=== PATIENT | female | born 1930 | race Two or more races ===

== ENCOUNTER 2016-10-08 09:10 | Inpatient (IN) | payer MEDICARE, MEDICAID ==
[2016-10-08] VITALS (8 sets, daily range): BP systolic 131–159; BP diastolic 57–91
[~2016-10-08] VITALS: Ht 144.8 cm; Wt 59.0 kg
[2016-10-08] MEDS ORDERED: Solu-MEDROL 125mg Inj IVP ONE (09:30)
[2016-10-08] MEDS: Albuterol ud Inhalation HHN SCH ×3 (09:36→10:07)
--- NOTE | 2016-10-08 09:48 | Emergency Room Report ---
History of Present Illness General Chief Complaint: Upper Respiratory Illness Source: Patient, EMS Present Illness HPI 85 YOF with 1 week of "asthma problem". Assoc with cough, fever/chills. Denies abd pain, urinary complaints, weakness, headache. Using her home meds without improvement. BIBEMS, given tx en route. PMD is Dr Tovar Allergies: Coded Allergies: AMOXICILLIN (Verified Allergy, Unknown, 10/08/16) LEVETIRACETAM (Verified Allergy, Unknown, 10/08/16) Patient History Past Medical History: asthma, COPD Past Surgical History: none Pertinent Family History: none Social History: Denies: alcohol use, drug use, smoking Now: No Immunizations: UTD Reviewed Nursing Documentation: PMH: Agreed, PSxH: Agreed Nursing Documentation-PMH Past Medical History: No History, Except For Hx Hypertension: Yes Hx COPD: Yes Review of Systems All Other Systems: negative except mentioned in HPI Physical Exam Vital Signs Date Time Temp Pulse Resp B/P Pulse Ox O2 Delivery O2 Flow Rate FiO2 10/08/16 09:10 98.8 75 22 157/74 98 Room Air 10/08/16 09:39 21 Sp02 EP Interpretation: reviewed, normal General Appearance: normal inspection, well appearing, alert, GCS 15, non-toxic , mild distress Head: normocephalic, atraumatic Eyes: bilateral eye EOMI, bilateral eye PERRL ENT: normal ENT inspection, hearing grossly normal, normal voice Neck: normal inspection, full range of motion, supple, no bony tend Respiratory: normal inspection, no retraction, no accessory muscle use, speaking full sentences, wheezing Cardiovascular #1: regular rate, rhythm, no edema Gastrointestinal: normal inspection, normal bowel sounds, non tender, soft, no guarding, no hernia Genitourinary: no CVA tenderness Musculoskeletal: normal inspection, back normal, normal range of motion, Lucius' s Sign negative Neurologic: normal inspection, alert, oriented x3, responsive, interior decorator paperhanging III-XII nml as tested, motor strength/tone normal, speech normal Psychiatric: normal inspection, judgement/insight normal, mood/affect normal Skin: normal inspection Medical Decision Making Medicare Attestation I Radha Melendez MD hereby attest that the medical record entry for date of service, 06/12/16 accurately reflects signatures/notations that I made in my capacity as MD when I treated/diagnosed the above listed Medicare beneficiary. I attest that this information is true, accurate and complete to the best of my knowledge. I understand that any falsification, omission, or concealment of material fact may subject me to administrative, civil, or criminal liability. This patient warrants hospital admission for extreme of age and has a condition that cannot be treated as outpatient. Diagnostic Impression: Primary Impression: COPD exacerbation Additional Impression: DOC (acute kidney injury) ER Course Mild asthma/COPD exac: CXR does not show PNA. Improved on nebs. Mild DOC on labs. Patient encouraged to do PO intake Endorsed to Dr Tovar for tele admit at 1106am EKG Diagnostic Results Rate: normal Rhythm: NSR ST Segments: no acute changes ASA given to the pt in ED: No Rhythm Strip Diag. Results EP Interpretation: yes Rate: 63 Rhythm: NSR, no PVC's Chest X-Ray Diagnostic Results EP Interpretation: Yes Findings: no consolidation, no effusion, no pneumothorax, no acute cardiopulmonary disease Number of Views: 1 Last Vital Signs Date Time Temp Pulse Resp B/P Pulse Ox O2 Delivery O2 Flow Rate FiO2 10/08/16 09:39 71 18 Room Air 21 10/08/16 09:38 98 10/08/16 09:10 98.8 157/74 Status: improved Disposition: ADMITTED INPATIENT RADHA MELENDEZ M.D. Oct 08, 2016 09:48
--- NOTE | 2016-10-08 10:19 | Diagnostic Imaging Report ---
Clinical history: Shortness of breath Technique: Portable AP chest radiograph was obtained. Comparison: None Findings: There is mild cardiomegaly with probable mild interstitial edema. Trace left effusion may be present. No focal consolidation is identified. Probable mild scattered changes of chronic lung disease are identified. The bony thorax is unremarkable. Impression: Mild cardiomegaly with suspected mild interstitial edema and trace left pleural effusion.
[2016-10-08 10:42] LABS: BASOPHILS % (AUTO) 1.5 % (0.0-2.0); EOSINOPHILS % (AUTO) 14.8 % (0.0-3.0); LYMPHOCYTES % (AUTO) 18.2 % (20.0-45.0); MEAN CORPUSCULAR HEMOGLOBIN 25.9 PG (27.0-31.0); MEAN CORPUSCULAR HGB CONC 30.2 G/DL (32.0-36.0); MEAN CORPUSCULAR VOLUME 86 FL (80-99); MEAN PLATELET VOLUME 6.1 FL (6.5-10.1); NEUTROPHILS % (AUTO) 57.6 % (45.0-75.0); PLATELET COUNT 265 K/UL (150-450); RED CELL DISTRIBUTION WIDTH 15.8 % (11.6-14.8); WHITE BLOOD COUNT 8.4 K/UL (4.8-10.8)
[2016-10-08 11:03] LABS: ALANINE AMINOTRANSFERASE 10 U/L (3-33); ALBUMIN/GLOBULIN RATIO 1.3 (1.0-2.7); ANION GAP 15 (5-15); ASPARTATE AMINO TRANSFERASE 17 U/L (5-40); CALCIUM 9.9 mg/dL (8.6-10.2); CARBON DIOXIDE 26 mEQ/L (20-30); CHLORIDE 101 mEQ/L (98-107); HEMOLYSIS 1; POTASSIUM 4.8 mEQ/L (3.4-4.9); SODIUM 142 mEQ/L (135-145); TOTAL PROTEIN 7.4 g/dL (6.6-8.7); TROPONIN I < 0.30 ng/mL (<=0.30)
[2016-10-08] MEDS ORDERED: NORVASC5 MG ORAL (13:54)
[2016-10-08] MEDS ORDERED: TYLENOL EXTRA500 MG ORAL (13:54)
[2016-10-08] MEDS ORDERED: VITAMIN D400 INTLU ORAL (13:54)
[2016-10-08] MEDS ORDERED: MELATONIN 3 MG1 EACH ORAL (13:54)
[2016-10-08] MEDS ORDERED: ADVAIR 500-501 EACH INH (13:54)
[2016-10-08] MEDS ORDERED: COZAAR50 MG ORAL (13:54)
[2016-10-08] MEDS ORDERED: NEURONTIN100 MG ORAL (13:54)
[2016-10-08] MEDS ORDERED: CYMBALTA60 MG ORAL (13:54)
[2016-10-08] MEDS ORDERED: PRILOSEC OTC20 MG ORAL (13:54)
[2016-10-08] MEDS ORDERED: MIRTAZAPINE15 MG ORAL (13:54)
[2016-10-08] MEDS ORDERED: SYNTHROID25 MCG ORAL (13:54)
[2016-10-08] MEDS ORDERED: LEXAPRO20 MG ORAL (13:54)
[2016-10-08] MEDS ORDERED: ATORVASTATIN CA20 MG ORAL (13:54)
[2016-10-08] MEDS ORDERED: ALBUTEROL2.5 MG/3 M INH (13:54)
[2016-10-08] MEDS ORDERED: FOSAMAX70 MG ORAL (13:54)
[2016-10-08] MEDS ORDERED: DULCOLAX10 MG RC (13:54)
[2016-10-08] MEDS ORDERED: PROAIR HFA8.5 GM INH (13:54)
[2016-10-08] MEDS ORDERED: PLAQUENIL200 MG ORAL (13:54)
[2016-10-08] MEDS ORDERED: COLACE100 MG ORAL (13:54)
[2016-10-08] MEDS ORDERED: Milk of Magnesia 30ml Ud ORAL PRN (14:45)
[2016-10-08] MEDS ORDERED: Docusate 250mg cap ORAL PRN (14:45)
[2016-10-08] MEDS ORDERED: Acetaminophen 500mg (ES) tab ORAL PRN (14:45)
[2016-10-08] MEDS ORDERED: Albuterol ud Inhalation HHN PRN (15:15)
[2016-10-08] MEDS: Losartan 50mg tab ORAL SCH (17:18)
[2016-10-08] MEDS: DuoNeb 0.5-3(2.5)mg/3ml neb HHN SCH ×2 (19:10→22:52)
--- NOTE | 2016-10-08 20:08 | History and Physical Report ---
DATE OF ADMISSION: 10/08/2016 CHIEF COMPLAINT/REASON FOR HOSPITALIZATION: The patient is an 85-year-old lady admitted with shortness of breath and asthma. HISTORY OF PRESENT ILLNESS: The patient is well known to me and has a history of asthma, rheumatoid arthritis, depression, hyperlipidemia, and hypertension. She lives in assisted-living facility. She apparently called the paramedics for increasing shortness of breath. She has had wheezing on and off for the last month and has a nebulizer at home. She has a cough and nonproductive. PAST SURGICAL HISTORY: Appendectomy. MEDICATIONS: Tylenol, Dulcolax, melatonin, Pro-Air inhaler, Colace, atorvastatin, Fosamax, Norvasc, Cymbalta, Lexapro, Plaquenil, Synthroid, Cozaar, Remeron, Prilosec, Colace, vitamin D3, Advair inhaler, Neurontin and albuterol via HHN. She also recently completed a course of prednisone and Zithromax. ALLERGIES: Apparently to Bactrim. HABITS: She is a nondrinker and nonsmoker. No use of illicit drugs. REVIEW OF SYSTEMS: HEENT: She wears eye glasses. She has mild decreased visual acuity and mild decreased hearing. Endocrine: History of hypothyroidism, on replacement. No diabetes. Pulmonary: History of tuberculosis as a child and was treated in the [facility]. History of asthma. Cardiac: History of hypertension and hyperlipidemia. No angina or NM. Gastrointestinal: She has had intermittent gastritis. No current nausea, vomiting, hematochezia or melena. Genitourinary: No recent dysuria, hematuria or kidney stones. Neurologic: No CVA syncope or seizures. She has had some cognitive impairment. Musculoskeletal: History of rheumatoid arthritis with an increased inflammatory joints, she uses a walker. She has chronic joint pain. She has also had left rib pain recently. PHYSICAL EXAMINATION: GENERAL: The patient alert elderly lady, quite anxious, seen in the emergency department. VITAL SIGNS: Reviewed on the computer. HEENT: Sclerae nonicteric. Ocular motions intact in all directions. Oral mucosa moist. NECK: No adenopathy. LUNGS: Bilateral wheezing. She is in mild distress. HEART: Regular rhythm. No murmur. ABDOMEN: Soft. No organomegaly or masses. EXTREMITIES: No edema, cyanosis or clubbing. There is chronic deformities in the hands and knees consistent with rheumatoid arthritis. There is no edema. NEUROLOGIC: She is alert and responsive. Ocular motions intact in all directions. Smile symmetric. Tongue is midline. PSYCHIATRIC: She is quite anxious. IMPRESSION: 1. Asthma, acute exacerbation. 2. Rheumatoid arthritis. 3. Hypertension. 4. Anxiety disorder. 5. History of delusional disorder. 6. Cognitive impairment. PLAN: The patient will be given a short course of steroids, nebulizer treatment, and empiric antibiotics. We will watch her closely in view of her comorbidities to the family. Mike Tovar M.D. DR: CLAIRE JOB#: [id number] CC:
[2016-10-08] MEDS: Solu-MEDROL 40mg Inj IVP SCH (20:54)
[2016-10-08] MEDS: Atorvastatin 20mg tab ORAL SCH (20:54)
[2016-10-08] MEDS: Heparin 5000 units/ml inj SUBQ SCH (20:59)
[2016-10-09] VITALS: BP 126/64
[2016-10-09] MEDS: DuoNeb 0.5-3(2.5)mg/3ml neb HHN SCH ×6 (02:39→23:00)
[2016-10-09 04:00] VITALS: BP 150/85
[2016-10-09 08:00] VITALS: BP 148/90
[2016-10-09] MEDS: DULoxetine 30mg cap ORAL SCH (08:22)
[2016-10-09] MEDS: Solu-MEDROL 40mg Inj IVP SCH ×2 (08:23→21:43)
[2016-10-09] MEDS: Vitamin D 1000 IU Tab ORAL SCH (08:24)
[2016-10-09] MEDS: Losartan 50mg tab ORAL SCH (08:24)
[2016-10-09] MEDS: Heparin 5000 units/ml inj SUBQ SCH ×2 (08:28→21:44)
[2016-10-09 11:57] VITALS: BP 145/77
[2016-10-09 16:00] VITALS: BP 137/98
--- NOTE | 2016-10-09 17:00 | General Progress Note ---
Assessment/Plan Problem List: (1) Anxiety ICD Codes: F41.9 - Anxiety disorder, unspecified SNOMED: 76874886 (2) Hypertension, benign ICD Codes: I10 - Essential (primary) hypertension SNOMED: 77739694 (3) Rheumatoid arthritis ICD Codes: M06.9 - Rheumatoid arthritis, unspecified SNOMED: 84848780 (4) Asthma exacerbation ICD Codes: J45.901 - Unspecified asthma with (acute) exacerbation SNOMED: 391822528 Assessment/Plan contiue steroids, hhn mobilize Subjective HEENT: Reports: no symptoms Cardiovascular: Reports: no symptoms Respiratory: Reports: shortness of breath Gastrointestinal/Abdominal: Reports: no symptoms Genitourinary: Reports: no symptoms Neurologic/Psychiatric: Reports: weakness Endocrine: Reports: no symptoms Hematologic/Lymphatic: Reports: no symptoms Allergies: Coded Allergies: AMOXICILLIN (Verified Allergy, Unknown, 10/08/16) LEVETIRACETAM (Verified Allergy, Unknown, 10/08/16) Objective Last 24 Hour Vital Signs Date Time Temp Pulse Resp B/P Pulse Ox O2 Delivery O2 Flow Rate FiO2 10/09/16 14:40 78 18 99 21 10/09/16 14:40 77 18 98 Room Air 10/09/16 14:40 21 10/09/16 12:00 79 10/09/16 11:57 98.1 80 21 145/77 97 Room Air 10/09/16 10:40 76 18 99 21 10/09/16 10:40 69 18 99 Room Air 10/09/16 10:40 21 10/09/16 09:00 88 148/70 10/09/16 08:24 148/70 10/09/16 08:00 88 10/09/16 08:00 97.2 88 21 148/90 98 Room Air 10/09/16 07:40 79 18 99 21 10/09/16 06:40 21 10/09/16 06:40 79 18 99 Room Air 10/09/16 04:00 97.5 85 18 150/85 95 Room Air 10/09/16 03:56 77 10/09/16 03:56 74 10/09/16 02:42 79 18 98 21 10/09/16 02:39 79 18 96 Room Air 10/09/16 02:39 21 10/09/16 00:03 73 10/09/16 00:00 97.3 72 18 126/64 94 Room Air 10/08/16 22:58 82 18 97 21 10/08/16 22:54 21 10/08/16 22:54 78 18 97 Room Air 21 10/08/16 20:00 97.7 81 18 131/57 95 Room Air 10/08/16 19:17 78 18 95 Room Air 21 10/08/16 19:16 80 18 Room Air 21 10/08/16 19:08 92 10/08/16 18:04 98.3 85 18 147/71 98 Room Air 10/08/16 17:18 138/71 10/08/16 17:17 88 138/71 Intake and Output 10/08/16 10/09/16 19:00 07:00 # Voids 4 Height (Feet): 4 Height (Inches): 9.00 Weight (Pounds): 130 General Appearance: no apparent distress, alert EENT: normal ENT inspection Neck: normal alignment Cardiovascular: normal rate, regular rhythm Respiratory/Chest: expiratory wheezing Abdomen: non tender Edema: no edema noted Arm (L), no edema noted Arm (R), no edema noted Leg (L), no edema noted Leg (R), no edema noted Pedal (L), no edema noted Pedal (R), no edema noted Generalized Neurologic: silver holloware assembler II-XII grossly normal BRAULIO MARK Oct 09, 2016 17:00
--- NOTE | 2016-10-09 17:10 | Consultation ---
Consult Note Assessment/Plan dict agree w orders RADHA CAREY Oct 09, 2016 17:10
[2016-10-09] MEDS: Albuterol ud Inhalation HHN SCH ×2 (19:16→23:39)
[2016-10-09 20:00] VITALS: BP 137/62
[2016-10-09] MEDS: Atorvastatin 20mg tab ORAL SCH (21:43)
--- NOTE | 2016-10-09 22:28 | Consultation ---
DATE OF CONSULTATION: 10/09/2016 PULMONARY CONSULTATION CHIEF COMPLAINT: Shortness of breath. HISTORY OF PRESENT ILLNESS: The patient is an 85-year-old woman with a long history of asthma since childhood. She has never smoked cigarettes. She has been hospitalized in the past for asthma. She has never been intubated in the ICU as far as she can recall. She uses a nebulizer at home several times a day as well as other inhalers and despite this, she became increasingly short of breath and came to the emergency department via paramedics. She is coughing without sputum production. She recently completed a course of prednisone and Zithromax. PAST MEDICAL HISTORY: Rheumatoid arthritis, asthma, hypothyroidism, hypertension, depression and anxiety. ALLERGIES: Bactrim, Keppra and amoxicillin. REVIEW OF SYSTEMS: Otherwise unremarkable. SOCIAL HISTORY: She does not drink or smoke. She lives in assisted living. PHYSICAL EXAMINATION: GENERAL: The patient is alert and responds appropriately. She is anxious and seems depressed. She is not in respiratory distress. VITAL SIGNS: Stable. HEENT: Head is normocephalic. There are cushingoid features of the face. NECK: No jugular venous distention. No lymphadenopathy. CHEST: She has expiratory wheezing. There is no accessory muscle use. CARDIAC: Rhythm is regular without murmur or gallop. ABDOMEN: Soft and nontender. Liver and spleen are not enlarged. EXTREMITIES: No clubbing, cyanosis, or edema. There are chronic rheumatoid changes of the hands. LABORATORY AND DIAGNOSTIC DATA: Laboratory studies and x-rays were reviewed. IMPRESSION: 1. Exacerbation of asthma. 2. Rheumatoid arthritis. 3. Severe depression. 4. Hypertension. 5. Anxiety disorder. 6. Hypothyroidism. PLAN: The patient is on appropriate steroids, bronchodilators and antibiotics. I will be happy to follow her closely in the hospital with you. We will continue her antidepressants. Yaron Odom M.D. DR: KATLIN JOB#: [id number] CC:
[2016-10-10] VITALS (7 sets, daily range): BP systolic 118–153; BP diastolic 58–88
--- NOTE | 2016-10-10 00:01 | Cardiology Report ---
APPROVED REPORT EKG Measurement Heart [id number] Normal sinus rhythm with sinus arrhythmia Septal infarct, age undetermined Abnormal ECG
[2016-10-10] MEDS: DuoNeb 0.5-3(2.5)mg/3ml neb HHN SCH ×6 (03:00→23:00)
[2016-10-10] MEDS: Albuterol ud Inhalation HHN SCH ×2 (03:32→07:00)
[2016-10-10] MEDS: Solu-MEDROL 40mg Inj IVP SCH (08:43)
[2016-10-10] MEDS: Losartan 50mg tab ORAL SCH (08:44)
[2016-10-10] MEDS: Vitamin D 1000 IU Tab ORAL SCH (08:44)
[2016-10-10] MEDS: DULoxetine 30mg cap ORAL SCH (08:44)
[2016-10-10] MEDS: Heparin 5000 units/ml inj SUBQ SCH ×2 (08:46→20:18)
--- NOTE | 2016-10-10 09:25 | Pulmonology Progress Note ---
Assessment/Plan Assessment/Plan 1. Exacerbation of asthma, improving 2. Rheumatoid arthritis. 3. Severe depression. 4. Hypertension. 5. Anxiety disorder. 6. Hypothyroidism. Feels better today improving with treatment cont rx Subjective Respiratory: Reports: shortness of breath - better Allergies: Coded Allergies: AMOXICILLIN (Verified Allergy, Unknown, 10/08/16) LEVETIRACETAM (Verified Allergy, Unknown, 10/08/16) Objective Last 24 Hour Vital Signs Date Time Temp Pulse Resp B/P Pulse Ox O2 Delivery O2 Flow Rate FiO2 10/10/16 08:44 129/66 10/10/16 08:44 80 129/66 10/10/16 08:15 98.4 78 19 129/66 94 Room Air 78 10/10/16 07:12 82 18 98 21 10/10/16 07:02 21 10/10/16 07:02 80 18 95 Room Air 21 10/10/16 04:15 97.0 84 20 153/80 94 Room Air 10/10/16 04:00 67 10/10/16 03:34 70 18 100 21 10/10/16 03:34 21 10/10/16 03:33 71 18 96 Room Air 21 10/10/16 00:06 97.7 73 20 130/88 99 Room Air 10/10/16 00:00 72 10/09/16 23:41 21 10/09/16 23:41 69 18 99 21 10/09/16 23:41 72 18 98 Room Air 21 10/09/16 20:00 98.2 81 20 137/62 96 Room Air 10/09/16 20:00 82 10/09/16 19:20 83 18 99 21 10/09/16 19:19 83 18 99 Room Air 21 10/09/16 19:19 21 10/09/16 16:00 97.7 93 21 137/98 96 Room Air 10/09/16 16:00 93 10/09/16 14:40 78 18 99 21 10/09/16 14:40 77 18 98 Room Air 21 10/09/16 14:40 21 10/09/16 12:00 79 10/09/16 11:57 98.1 80 21 145/77 97 Room Air 10/09/16 10:40 76 18 99 21 10/09/16 10:40 69 18 99 Room Air 21 10/09/16 10:40 21 Intake and Output 10/09/16 10/10/16 19:00 07:00 Intake Total 560 ml 400 ml Balance 560 ml 400 ml Intake Oral 560 ml 400 ml # Voids 2 2 General Appearance: no acute distress HEENT: atraumatic Respiratory/Chest: expiratory wheezing Cardiovascular: normal rate Microbiology Date/Time Source Procedure Growth Status 10/08/16 18:30 Nasal Nares Influenza Types A,B Antigen (LISSY) - Final Complete 10/08/16 14:10 Rectal Mucosa VRE Culture - Final NO VANCOMYCIN RESISTANT ENTEROCOCCUS ... Complete Current Medications Medications (Trade) Dose Ordered Sig/Mohinder Route PRN Reason Start Time Stop Time Status Last Admin Dose Admin Acetaminophen (Tylenol) 650 mg Q4H PRN ORAL Mild Pain/Temp > 100.5 10/08/16 14:45 11/07/16 14:44 Albuterol Sulfate (Proventil) 2.5 mg Q4HRT N 10/09/16 19:00 10/14/16 18:59 10/10/16 03:32 Albuterol/ Ipratropium (DuoNeb 0.5-3(2.5)mg/3ml) 3 ml Q4HRT N 10/08/16 15:00 10/13/16 14:59 10/10/16 07:01 Alendronate Sodium (Fosamax) 70 mg QWEEK@0630 ORAL 10/14/16 06:30 11/13/16 06:29 Amlodipine Besylate (Norvasc) 5 mg DAILY ORAL 10/08/16 15:30 11/07/16 15:29 10/10/16 08:44 Atorvastatin Calcium (Lipitor) 20 mg BEDTIME ORAL 10/08/16 21:00 11/07/16 20:59 10/09/16 21:43 Bisacodyl (Dulcolax) 10 mg DAILYPRN PRN RECTAL Constipation 10/08/16 15:30 11/07/16 15:29 Budesonide/ Formoterol Fumarate (Symbicort 160/ 4.5) 2 puff TWICE A DAY INH 10/08/16 18:00 11/07/16 17:59 10/10/16 09:16 Docusate Sodium (Colace) 250 mg DAILYPRN PRN ORAL Constipation 10/08/16 14:45 11/07/16 14:44 Duloxetine HCl (Cymbalta) 60 mg DAILY ORAL 10/09/16 09:00 11/08/16 08:59 10/10/16 08:44 Escitalopram Oxalate (Lexapro) 20 mg DAILY ORAL 10/09/16 09:00 11/08/16 08:59 10/10/16 08:44 Gabapentin (Neurontin) 300 mg THREE TIMES A DAY ORAL 10/08/16 18:00 11/07/16 17:59 10/10/16 08:44 Heparin Sodium (Porcine) (Heparin 5000 units/ml) 5,000 units EVERY 12 HOURS SUBQ 10/08/16 21:00 11/07/16 20:59 10/09/16 21:44 Hydroxychloroquine Sulfate (Plaquenil) 200 mg DAILY ORAL 10/09/16 09:00 11/08/16 08:59 10/10/16 08:44 Levothyroxine Sodium (Synthroid) 50 mcg DAILY ORAL 10/09/16 09:00 11/08/16 08:59 10/10/16 08:44 Losartan Potassium (Cozaar) 50 mg DAILY ORAL 10/08/16 15:30 11/07/16 15:29 10/10/16 08:44 Magnesium Hydroxide (Mom) 30 ml DAILYPRN PRN ORAL Constipation 10/08/16 14:45 11/07/16 14:44 Methylprednisolone Sodium Succinate (Solu-MEDROL) 40 mg EVERY 12 HOURS IVP 10/08/16 21:00 11/07/16 20:59 10/10/16 08:43 Mirtazapine (Remeron) 15 mg BEDTIME ORAL 10/08/16 21:00 11/07/16 20:59 10/09/16 21:43 Pantoprazole (Protonix) 40 mg ACBREAKFAST ORAL 10/09/16 06:30 11/08/16 06:29 10/10/16 05:55 Vitamin D (Vitamin D) 2,000 intlu DAILY ORAL 10/09/16 09:00 11/08/16 08:59 10/10/16 08:44 RADHA CAREY Oct 10, 2016 09:25
[2016-10-10] MEDS ORDERED: Docusate 250mg cap ORAL PRN (14:45)
--- NOTE | 2016-10-10 16:32 | General Progress Note ---
Assessment/Plan Problem List: (1) Anxiety ICD Codes: F41.9 - Anxiety disorder, unspecified SNOMED: 15605316 (2) Hypertension, benign ICD Codes: I10 - Essential (primary) hypertension SNOMED: 28725558 (3) Rheumatoid arthritis ICD Codes: M06.9 - Rheumatoid arthritis, unspecified SNOMED: 82982856 (4) Asthma exacerbation ICD Codes: J45.901 - Unspecified asthma with (acute) exacerbation SNOMED: 962485795 (5) Delirium ICD Codes: R41.0 - Disorientation, unspecified SNOMED: 8586649 Status Narrative agitated,crying, sat on floor , hyperventilating Assessment/Plan contiue steroids,taper, hhn mobilize, start seroquel--d/w family who consent to psychotropics Subjective Constitutional: Reports: weakness HEENT: Reports: no symptoms Cardiovascular: Reports: no symptoms Respiratory: Reports: cough, wheezing Gastrointestinal/Abdominal: Reports: no symptoms Genitourinary: Reports: no symptoms Neurologic/Psychiatric: Reports: emotional problems, weakness Endocrine: Reports: no symptoms Hematologic/Lymphatic: Reports: no symptoms Allergies: Coded Allergies: AMOXICILLIN (Verified Allergy, Unknown, 10/08/16) LEVETIRACETAM (Verified Allergy, Unknown, 10/08/16) Objective Last 24 Hour Vital Signs Date Time Temp Pulse Resp B/P Pulse Ox O2 Delivery O2 Flow Rate FiO2 10/10/16 16:00 97.2 79 20 126/59 95 Room Air 10/10/16 14:58 83 18 98 21 10/10/16 14:48 79 18 95 Room Air 21 10/10/16 14:48 21 10/10/16 11:37 80 10/10/16 11:19 97.8 75 19 143/75 97 Room Air 75 10/10/16 10:56 82 18 98 21 10/10/16 10:46 80 18 95 Room Air 21 10/10/16 10:46 21 10/10/16 08:44 129/66 10/10/16 08:44 80 129/66 10/10/16 08:15 98.4 78 19 129/66 94 Room Air 78 10/10/16 08:08 75 10/10/16 07:12 82 18 98 21 10/10/16 07:02 21 10/10/16 07:02 80 18 95 Room Air 21 10/10/16 04:15 97.0 84 20 153/80 94 Room Air 10/10/16 04:00 67 10/10/16 03:34 70 18 100 21 10/10/16 03:34 21 10/10/16 03:33 71 18 96 Room Air 21 10/10/16 00:06 97.7 73 20 130/88 99 Room Air 10/10/16 00:00 72 10/09/16 23:41 21 10/09/16 23:41 69 18 99 21 10/09/16 23:41 72 18 98 Room Air 21 10/09/16 20:00 98.2 81 20 137/62 96 Room Air 10/09/16 20:00 82 10/09/16 19:20 83 18 99 21 10/09/16 19:19 83 18 99 Room Air 21 10/09/16 19:19 21 Intake and Output 10/09/16 10/10/16 19:00 07:00 Intake Total 560 ml 400 ml Balance 560 ml 400 ml Intake Oral 560 ml 400 ml # Voids 2 2 Height (Feet): 4 Height (Inches): 9.00 Weight (Pounds): 130 General Appearance: confused, moderate distress EENT: normal ENT inspection Neck: normal alignment Cardiovascular: normal rate, regular rhythm Respiratory/Chest: expiratory wheezing Abdomen: non tender, soft Edema: no edema noted Arm (L), no edema noted Arm (R), no edema noted Leg (L), no edema noted Leg (R), no edema noted Pedal (L), no edema noted Pedal (R), no edema noted Generalized BRAULIO MARK Oct 10, 2016 16:32
[2016-10-10] MEDS ORDERED: Acetaminophen 500mg (ES) tab ORAL PRN (17:00)
[2016-10-10] MEDS ORDERED: Atorvastatin 20mg tab ORAL SCH (21:00)
[2016-10-11] MEDS: DuoNeb 0.5-3(2.5)mg/3ml neb HHN SCH ×4 (02:55→15:29)
[2016-10-11 04:00] VITALS: BP 125/74
[2016-10-11] MEDS: Heparin 5000 units/ml inj SUBQ SCH (08:27)
[2016-10-11 08:30] VITALS: BP 133/65
[2016-10-11] MEDS ORDERED: Solu-MEDROL 40mg Inj IVP SCH ×2 (09:00)
[2016-10-11] MEDS ORDERED: DULoxetine 30mg cap ORAL SCH (09:00)
[2016-10-11] MEDS ORDERED: Losartan 50mg tab ORAL SCH (09:00)
[2016-10-11] MEDS ORDERED: Vitamin D 1000 IU Tab ORAL SCH (09:00)
[2016-10-11 12:21] VITALS: BP 144/71
[2016-10-11] MEDS ORDERED: Milk of Magnesia 30ml Ud ORAL PRN (14:45)
--- NOTE | 2016-10-11 16:07 | Pulmonology Progress Note ---
Assessment/Plan Assessment/Plan 1. Exacerbation of asthma, improving 2. Rheumatoid arthritis. 3. Severe depression. 4. Hypertension. 5. Anxiety disorder. 6. Hypothyroidism. Doing better anxious to go home improving with treatment Disc w Dr Tovar taper to 10 mg prednisone qd Subjective Respiratory: Denies: shortness of breath Allergies: Coded Allergies: AMOXICILLIN (Verified Allergy, Unknown, 10/08/16) LEVETIRACETAM (Verified Allergy, Unknown, 10/08/16) Objective Last 24 Hour Vital Signs Date Time Temp Pulse Resp B/P Pulse Ox O2 Delivery O2 Flow Rate FiO2 10/11/16 12:21 97.5 67 20 144/71 94 Room Air 10/11/16 08:30 97.7 94 20 133/65 95 Nasal Cannula 2.0 10/11/16 08:26 125/74 10/11/16 08:24 69 125/74 10/11/16 04:00 98.1 69 18 125/74 Room Air 10/11/16 02:55 21 10/11/16 02:55 Room Air 10/10/16 23:59 97.7 62 18 118/58 93 Room Air 10/10/16 23:30 Room Air 10/10/16 23:30 21 10/10/16 20:42 71 16 100 21 10/10/16 20:34 69 16 94 Room Air 21 10/10/16 20:34 21 10/10/16 20:00 97.5 68 18 121/61 97 Room Air Intake and Output 10/10/16 10/11/16 19:00 07:00 Intake Total 590 ml 240 ml Balance 590 ml 240 ml Intake Oral 590 ml 240 ml # Voids 2 3 General Appearance: no acute distress Respiratory/Chest: expiratory wheezing - mild Microbiology Date/Time Source Procedure Growth Status 10/08/16 18:30 Nasal Nares Influenza Types A,B Antigen (LISSY) - Final Complete Current Medications Medications (Trade) Dose Ordered Sig/Mohinder Route PRN Reason Start Time Stop Time Status Last Admin Dose Admin Acetaminophen (Tylenol) 650 mg Q4H PRN ORAL Mild Pain/Temp > 100.5 10/10/16 17:00 11/09/16 16:59 Albuterol/ Ipratropium (DuoNeb 0.5-3(2.5)mg/3ml) 3 ml Q4HRT HHN 10/10/16 19:00 10/15/16 18:59 10/11/16 15:29 Alendronate Sodium (Fosamax) 70 mg QWEEK@0630 ORAL 10/14/16 06:30 11/13/16 06:29 UNV Amlodipine Besylate (Norvasc) 5 mg DAILY ORAL 10/11/16 09:00 11/10/16 08:59 10/11/16 08:24 Atorvastatin Calcium (Lipitor) 20 mg BEDTIME ORAL 10/10/16 21:00 11/09/16 20:59 10/10/16 20:16 Bisacodyl (Dulcolax) 10 mg DAILYPRN PRN RECTAL Constipation SECOND LINE 10/11/16 15:30 11/10/16 15:29 Budesonide/ Formoterol Fumarate (Symbicort 160/ 4.5) 2 puff TWICE A DAY INH 10/10/16 18:00 11/09/16 17:59 10/11/16 10:48 Docusate Sodium (Colace) 250 mg DAILYPRN PRN ORAL Constipation FIRST LINE AGENT 10/10/16 14:45 11/09/16 14:44 Duloxetine HCl (Cymbalta) 60 mg DAILY ORAL 10/11/16 09:00 11/10/16 08:59 10/11/16 08:25 Escitalopram Oxalate (Lexapro) 20 mg DAILY ORAL 10/11/16 09:00 11/10/16 08:59 10/11/16 08:25 Gabapentin (Neurontin) 300 mg THREE TIMES A DAY ORAL 10/10/16 18:00 11/09/16 17:59 10/11/16 13:00 Heparin Sodium (Porcine) (Heparin 5000 units/ml) 5,000 units EVERY 12 HOURS SUBQ 10/10/16 21:00 11/09/16 20:59 10/11/16 08:27 Hydroxychloroquine Sulfate (Plaquenil) 200 mg DAILY ORAL 10/11/16 09:00 11/10/16 08:59 10/11/16 08:51 Levothyroxine Sodium (Synthroid) 50 mcg ACBREAKFAST ORAL 10/11/16 09:00 11/10/16 08:59 10/11/16 08:24 Losartan Potassium (Cozaar) 50 mg DAILY ORAL 10/11/16 09:00 11/10/16 08:59 10/11/16 08:26 Magnesium Hydroxide (Mom) 30 ml DAILYPRN PRN ORAL Constipation THIRD LINE AGENT 10/11/16 14:45 11/10/16 14:44 Methylprednisolone Sodium Succinate (Solu-MEDROL) 20 mg DAILY IVP 10/11/16 09:00 11/10/16 08:59 10/11/16 08:25 Mirtazapine (Remeron) 15 mg BEDTIME ORAL 10/10/16 21:00 11/09/16 20:59 10/10/16 20:16 Pantoprazole (Protonix) 40 mg ACBREAKFAST ORAL 10/11/16 06:30 11/10/16 06:29 10/11/16 06:22 Quetiapine Fumarate (SEROquel) 25 mg Q12HR ORAL 10/10/16 21:00 11/09/16 20:59 10/11/16 08:24 Vitamin D (Vitamin D) 2,000 intlu DAILY ORAL 10/11/16 09:00 11/10/16 08:59 10/11/16 08:24 RADHA CAREY Oct 11, 2016 16:07
[2016-10-11 16:10] VITALS: BP 161/78
[2016-10-11] MEDS ORDERED: PREDNISONE20 MG ORAL (16:48)
[2016-10-11] MEDS ORDERED: SEROQUEL50 MG ORAL (16:48)
--- NOTE | 2016-10-11 23:18 | Progress Note ---
DATE: 10/11/2016 SUBJECTIVE: The patient continue to presents with depressed mood, anhedonia, worthlessness, hopelessness, and difficulty coping with the stressors and has poor insight and judgment into her mental condition. She does not endorse any suicidal or homicidal ideations and is not meeting the criteria for psychiatric hospitalization. I spoke with Dr. Tovar today in regards to her medical condition as well as psychiatry condition. She is not meeting the criteria for inpatient level of care. She may be discharged back to her skilled nursing. MENTAL STATUS EXAMINATION: Alert and oriented x4. Mood is depressed. Affect is constricted. Congruent mood. Thought process is concrete. Thought content, there is no suicidal or homicidal ideation. ASSESSMENT: AXIS I Major depressive disorder. AXIS II Deferred. AXIS III As above. AXIS Moderate. AXIS V 20. PLAN: 1. The patient will be continued on Lexapro as well as Seroquel. 2. Provide the patient with supportive therapy and reality orientation. Christiano Klein M.D. DR: ANÍBAL JOB#: [id number] CC:
--- NOTE | 2016-10-12 02:08 | Discharge Summary ---
DATE OF ADMISSION: 10/08/2016 DATE OF DISCHARGE: 10/11/2016 PERTINENT HISTORY: See my dictated History and Physical. HISTORY OF PRESENT ILLNESS: The patient is an 85-year-old, who presents with shortness of breath and asthma with worsening wheezing. PERTINENT PHYSICAL FINDINGS: GENERAL: She is in mild distress. HEENT: Throat clear. NECK: No adenopathy. LUNGS: Bilateral wheezing. HEART: Regular rhythm. No murmur. ABDOMEN: Soft without organomegaly. EXTREMITIES: No edema. There are rheumatoid changes in the hands. NEUROLOGIC: She is alert and responsive. No focal weakness. COURSE IN THE HOSPITAL: The patient had exacerbation of asthma and was given nebulizer treatments, empiric antibiotics, and steroids and there was gradual improvement of her wheezing. Chest x-ray showed no active disease. She developed agitation and sat down on the ground without falling and was very anxious, hyperventilating, and delusional. She was seen by Dr. Klein in psychiatric consultation and management after discussion with the family, they allowed us to start her on Seroquel. The patient had chronic depression and hallucinations. On the day of discharge, the patient's behavior was improved. Her lungs were clear. Heart, regular rhythm. Abdomen was soft. Extremities, no edema and she was discharged back to assisted living facility in improved condition. FINAL DIAGNOSES: 1. Acute asthma with exacerbation. 2. Rheumatoid arthritis. 3. Major depression. 4. Acute delirium. 5. Cognitive impairment. 6. Hypertension. DISCHARGE DISPOSITION: Back to her assisted living facility. DISCHARGE MEDICATIONS: Per the discharge medication list. DISCHARGE INSTRUCTIONS: DIET: On a regular diet. FOLLOWUP: Follow up with Dr. Tovar in the facility. Thank you so much. Mike Tovar M.D. DR: CHAI JOB#: [id number] CC:
== END 2016-10-11 17:17 | disposition home or self-care (01) | DRG 203 ==
LOC: EDBD 09:10 → EMR 10:31 → EDBEDREQ 13:22 → 2E 13:47 → 4W 10-10 16:56
DX: J45.901 Unspecified asthma with (acute) exacerbation (principal); M06.9 Rheumatoid arthritis, unspecified; I10 Essential (primary) hypertension; F32.9 Major depressive disorder, single episode, unspecified; E78.5 Hyperlipidemia, unspecified; F41.9 Anxiety disorder, unspecified; E03.9 Hypothyroidism, unspecified; F09 Unspecified mental disorder due to known physiological condition
CPT/HCPCS: 36415; 71010; 80053; 82550; 82553; 82962; 83880; 84484; 85025; 86710; 87081; 93005; 94640; 94664; J7620

== ENCOUNTER 2018-02-24 15:51 | Emergency (ER) | payer MEDICARE, MEDICAID ==
[~2018-02-24] VITALS: Ht 154.9 cm; Wt 72.6 kg
[~2018-02-24 15:51] MED LIST: ADVAIR 500-501 EACH INH; ALBUTEROL2.5 MG/3 M INH; ATORVASTATIN CA20 MG ORAL; COLACE100 MG ORAL; COZAAR50 MG ORAL; CYMBALTA60 MG ORAL; DULCOLAX10 MG RC; FOSAMAX70 MG ORAL; HYDROXYCHLOROQ200 M1 PO; LEXAPRO20 MG ORAL; LORAZEPAM0.5 MG ORAL; LORAZEPAM1 MG ORAL; MELATONIN 3 MG1 EACH ORAL; MIRTAZAPINE15 MG ORAL; NAPROXEN250 MG ORAL; NEURONTIN100 MG ORAL; NORVASC5 MG ORAL; PLAQUENIL200 MG ORAL; PREDNISONE20 MG ORAL; PRILOSEC OTC20 MG ORAL; PROAIR HFA8.5 GM INH; SEROQUEL50 MG ORAL; SYNTHROID25 MCG ORAL; TRAMADOL HCL50 MG ORAL; TRAZODONE HCL50 MG ORAL; TYLENOL EXTRA500 MG ORAL; VITAMIN D400 INTLU ORAL; ZOLOFT25 MG ORAL; ZYPREXA2.5 MG ORAL
[2018-02-24] MEDS ORDERED: Acetaminophen 500mg (ES) tab ORAL ONE (16:00)
[2018-02-24 16:02] VITALS: BP 142/75
[2018-02-24] MEDS ORDERED: PREDNISONE2.5 MG ORAL (16:08)
[2018-02-24] MEDS ORDERED: ACETAMINOPHEN500 M3 ORAL (17:10)
[2018-02-24 19:00] VITALS: BP 136/75
[2018-02-24 19:10] VITALS: BP 136/75
--- NOTE | 2018-02-24 19:31 | Emergency Room Report ---
History of Present Illness General Chief Complaint: Multiple Trauma/Fall Source: Patient Present Illness HPI Patient is an 87-year-old female who presented after a reported slip and fall. Patient had been a with a walker. She reports slipping and hitting the back of her head. She denies loss of consciousness. She reports having increased mild headache as well as some pain to her upper back. 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 Allergies: Coded Allergies: SULFA (SULFONAMIDE ANTIBIOTICS) (Verified Allergy, Intermediate, Rash, 06/25) SULFAMETHOXAZOLE (Verified Allergy, Intermediate, Rash, 01/17/18) TRIMETHOPRIM (Verified Allergy, Intermediate, Rash, 01/17/18) AMOXICILLIN (Verified Allergy, Unknown, 10/08/16) LEVETIRACETAM (Verified Allergy, Unknown, 10/08/16) Patient History Past Medical History: see triage record Reviewed Nursing Documentation: PMH: Agreed; PSxH: Agreed Nursing Documentation-PMH Past Medical History: No Stated History Hx Hypertension: Yes Hx COPD: Yes Review of Systems All Other Systems: negative except mentioned in HPI Physical Exam Vital Signs Date Time Temp Pulse Resp B/P (MAP) Pulse Ox O2 Delivery O2 Flow Rate FiO2 02/24/18 15:51 98.1 88 18 151/75 97 Room Air 98.1 Sp02 EP Interpretation: reviewed, normal General Appearance: normal inspection, well appearing, no apparent distress, alert, GCS 15 Head: atraumatic ENT: hearing grossly normal, normal voice, other - ENT Neck: normal inspection, full range of motion, supple, no bony tend Respiratory: normal inspection, lungs clear, normal breath sounds, no respiratory distress, no retraction, no wheezing Cardiovascular #1: regular rate, rhythm, no edema Gastrointestinal: normal inspection, normal bowel sounds, non tender, soft, no guarding, no hernia Genitourinary: no CVA tenderness Musculoskeletal: normal inspection, back normal, normal range of motion Neurologic: normal inspection, alert, responsive, speech normal Psychiatric: normal inspection, judgement/insight normal, mood/affect normal Skin: normal inspection, normal color, no rash Medical Decision Making Diagnostic Impression: Primary Impression: Fall Additional Impressions: Back pain Head contusion ER Course Patient presented after a fall. Differential diagnosis included was not limited to neck fracture, CVA, close head injury, syncopal episode, basilar ischemia. Because of complexity of patient's case imaging studies were ordered. CT the head read by radiology showed no evidence of acute hemorrhage or CVA. 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 The patient was advised follow-up with her nose and throat surgeon. The patient was able to ambulate with a walker. Patient was given Tylenol for pain as stated she felt better and wanted to go home. The patient is advised to follow up with primary care doctor in 1-2 days. Patient is advised to return if any worsening condition or if any changes in status that are concerning.The patient is sent home to assisted living with [facility] ambulance This report is dictated with [email or web address] assistant baseball coach software which may occasionally lead to discrepancies related to use of this software. Last Vital Signs Date Time Temp Pulse Resp B/P (MAP) Pulse Ox O2 Delivery O2 Flow Rate FiO2 02/24/18 17:13 98.1 02/24/18 16:02 84 18 142/75 98 Room Air Status: improved Disposition: HOME, SELF-CARE Scripts Acetaminophen* (ACETAMINOPHEN EXTRA STRENGTH*) 500 Mg Tablet 500 MG ORAL Q8H PRN for Fever/Headache/Mild Pain, #30 TAB Prov: Jose Mendenhall MD 02/24/18 Patient Instructions: Fall Prevention in the Home Jose Mendenhall MD Feb 24, 2018 19:31
--- NOTE | 2018-02-25 09:08 | Diagnostic Imaging Report ---
Indication: Upper back pain status post fall Technique: Spiral acquisitions obtained through the thoracic spine. No IV contrast utilized. Multiplanar reconstructions were generated. Total dose length product 2510.25 mGycm. CTDIvol(s) 70.38,12.94,19.81 mGy. Dose reduction achieved using automated exposure control Comparison: none Findings: There is mild thoracic scoliotic deformity which may in part be an artifact of positioning. Otherwise normal bony alignment. No acute fractures. No dislocations. Vertebral body heights are preserved. The disc spaces are preserved. The neural foramina are preserved. No significant disc bulge or protrusion or spinal stenosis. There are mild degenerative proliferative changes at multiple levels. Esophagus is somewhat distended and debris-filled. There is suggestion of a small sliding-type hiatal hernia Impression: No acute bony trauma Mild scoliotic deformity Minimal degenerative changes This agrees with the preliminary interpretation provided overnight by [facility] service. The CT scanner at [facility] is accredited by the [employer] and the scans are performed using protocols designed to limit radiation exposure to as low as reasonably achievable to attain images of sufficient resolution adequate for diagnostic evaluation.
--- NOTE | 2018-02-25 09:19 | Diagnostic Imaging Report ---
Indication: Pain, status post fall Technique: Spiral acquisitions obtained through the cervical spine. No IV contrast utilized. Multiplanar reconstructions were generated. Total dose length product 2510.25 mGycm. CTDIvol(s) 70.38,12.94,19.81 mGy. Dose reduction achieved using automated exposure control. Comparison: none Findings: There is anterior subluxation of the right temporomandibular joint, with the head perched on the anterior rim of the joint. This may be chronic as there is considerable deformity. There is also suggestion of a soft tissue mass with calcification surrounding the temporomandibular joint. This measures approximately 3.2 cm AP by 3 cm craniocaudad by at least 3.5 cm transverse; peripheral extent is not included in the imaging volume. No acute fractures are evident. No dislocations. Vertebral body heights are preserved. There is no prevertebral soft tissue swelling. There are degenerative changes of the anterior atlantoaxial joint. At C3-4, there is borderline spinal stenosis, predominantly due to short pedicles. There is mild to moderate left, severe right neural foraminal stenosis. There is minimal degenerative disc narrowing. There is facet arthrosis on the left. At C4-5, there is marked degenerative disc narrowing. There is mild narrowing the spinal canal, predominantly due to short pedicles. There is mild to moderate bilateral neural foraminal narrowing. At C5-6, the disc space is preserved. No significant disc bulge or protrusion or spinal stenosis. There is mild narrowing of the left neural foramen. At C6-7, there is at least moderate degenerative disc narrowing. No significant disc bulge or protrusion or spinal stenosis. There is mild neural foraminal stenosis bilaterally At C7-T1, no significant disc bulge or protrusion, spinal stenosis, or neural foraminal narrowing Included soft tissues demonstrate somewhat heterogeneous appearance to the thyroid and a 2.2 cm nodule in the left thyroid lobe. Impression: No acute bony trauma Chronic appearing subluxation with degenerative change of the right temporomandibular joint. Surrounding mass lesion as described above. Neoplasm certainly possible. Recommend further evaluation with contrast MRI, consider ENT consultation Heterogeneous thyroid with possible 2.2 cm left thyroid lobe mass. Consider further evaluation with ultrasound if clinically indicated This agrees with the preliminary interpretation provided overnight by [facility]. The CT scanner at [facility] is accredited by the [employer] and the scans are performed using protocols designed to limit radiation exposure to as low as reasonably achievable to attain images of sufficient resolution adequate for diagnostic evaluation.
--- NOTE | 2018-02-25 09:22 | Diagnostic Imaging Report ---
Indications: Head pain, status post fall, hit back of head Technique: Spiral acquisitions obtained through the brain. Angled axial and coronal 5 x 5 mm slices were reconstructed. Total dose length product 2510.25 mGycm. CTDI vol(s) 70.38,12.94,19.81 mGy. Dose reduction achieved using automated exposure control Comparison: None. Findings: There is age-related enlargement of the ventricles and extra axial CSF spaces. There is periventricular deep white matter low-attenuation. No acute intracranial hemorrhage or edema, mass effect, nor midline shift. The calvarium is intact. The visualized sinuses are unremarkable. There is evidence of prior bilateral cataract surgery. The right temporomandibular joint is markedly abnormal. There is anterior subluxation of the mandibular head, extensive erosion of the mandibular fossa and of the mandibular head, and a hyperattenuating and calcified soft tissue mass surrounding the proximal mandible which measures 4.8 cm transverse by 3.5 cm AP by 2.7 cm craniocaudad Impression: Negative for acute intracranial bleed or mass effect Markedly abnormal right temporomandibular joint, with subluxation, erosive changes, and a mass. Consider further evaluation with contrast MRI and/or tissue sampling if clinically indicated. The CT scanner at [facility] is accredited by the [employer] and the scans are performed using protocols designed to limit radiation exposure to as low as reasonably achievable to attain images of sufficient resolution adequate for diagnostic evaluation.
== END 2018-02-24 19:10 | disposition home or self-care (01) ==
LOC: EDBD 15:51 → EMR 16:10
DX: S00.93XA Contusion of unspecified part of head, initial encounter (principal); M54.9 Dorsalgia, unspecified; W01.0XXA Fall on same level from slipping, tripping and stumbling without subsequent striking against object, initial encounter; Y93.9 Activity, unspecified; Y92.9 Unspecified place or not applicable; I10 Essential (primary) hypertension; J44.9 Chronic obstructive pulmonary disease, unspecified; Z88.2 Allergy status to sulfonamides; Z88.8 Allergy status to other drugs, medicaments and biological substances
CPT/HCPCS: 70450; 72125; 72128; 99284

== ENCOUNTER 2018-03-08 07:27 | Emergency (ER) | payer MEDICARE, MEDICAID ==
[~2018-03-08] VITALS: Ht 149.9 cm; Wt 55.3 kg
[~2018-03-08 07:27] MED LIST changes: +ACETAMINOPHEN500 M3 ORAL; +PREDNISONE2.5 MG ORAL
[2018-03-08] MEDS ORDERED: Albuterol ud Inhalation HHN ONE (07:45)
[2018-03-08] MEDS ORDERED: Ipratropium 0.02% Inh Soln 2.5ml UD HHN ONE (07:45)
--- NOTE | 2018-03-08 08:01 | Emergency Room Report ---
History of Present Illness General Chief Complaint: Dyspnea/Respdistress Source: Patient, EMS Present Illness HPI Patient presents with complaints of sensation of shortness of breath She reports that she woke up this morning with shortness of breath she also reports a coughing episode patient appears to have some mild underlying dementia however able to provide appropriate history Denies any headache denies any chest pain denies any current shortness of breath Denies any back or flank pain denies any fall or trauma Allergies: Coded Allergies: SULFA (SULFONAMIDE ANTIBIOTICS) (Verified Allergy, Intermediate, Rash, 06/25) SULFAMETHOXAZOLE (Verified Allergy, Intermediate, Rash, 01/17/18) TRIMETHOPRIM (Verified Allergy, Intermediate, Rash, 01/17/18) AMOXICILLIN (Verified Allergy, Unknown, 10/08/16) LEVETIRACETAM (Verified Allergy, Unknown, 10/08/16) Patient History Past Medical History: see triage record Pertinent Family History: none Last Menstrual Period: NA Reviewed Nursing Documentation: PMH: Agreed; PSxH: Agreed Nursing Documentation-PMH Past Medical History: No History, Except For Hx Hypertension: Yes Hx Asthma: Yes Hx COPD: Yes Review of Systems All Other Systems: negative except mentioned in HPI Physical Exam Vital Signs Date Time Temp Pulse Resp B/P (MAP) Pulse Ox O2 Delivery O2 Flow Rate FiO2 03/08/18 07:28 98.0 75 16 163/83 94 Room Air 98.1 Sp02 EP Interpretation: reviewed, normal General Appearance: well appearing, no apparent distress Head: normocephalic, atraumatic Eyes: bilateral eye PERRL, bilateral eye EOMI ENT: hearing grossly normal, normal pharynx, TMs + canals normal, uvula midline Neck: full range of motion, supple, no meningismus, no bony tend Respiratory: lungs clear, normal breath sounds, no rhonchi, no respiratory distress, no retraction, no accessory muscle use Cardiovascular #1: normal peripheral pulses, regular rate, rhythm, no edema, no gallop, no JVD, no murmur Gastrointestinal: normal bowel sounds, non tender, soft, no mass, no organomegaly, non-distended, no guarding, no hernia, no pulsatile mass, no rebound Genitourinary: no CVA tenderness Musculoskeletal: normal inspection Neurologic: oriented x3, responsive, print and pattern designer III-XII nml as tested, motor strength/ tone normal, sensory intact Psychiatric: mood/affect normal Skin: normal color, no rash, warm/dry, palpation normal Lymphatic: normal inspection, no adenopathy Medical Decision Making Diagnostic Impression: Primary Impression: Shortness of breath ER Course Patient is a fairly complex patient with multiple differential to consideration including but not limited to cardiac cardiopulmonary and vascular emergencies Patient has done well throughout her stay Feels that she's breathing appropriately patient reports that after being picked up by paramedics and arriving here has been essentially asymptomatic Patient was observed placed on monitoring and evaluation advisor multiple differentials considered an extensive workup initiated Patient's imaging and blood work is normal EKG is also appropriate Patient's primary physician has been consulted and the emergency room and feels that the patient is stable for close outpatient follow-up Patient agrees with this and therefore was discharged for close follow-up CBC normal Chemistry bun 21 Troponin negative EKG Diagnostic Results Rate: normal Rhythm: NSR ST Segments: other - Nonspecific ST, T-wave changes Rhythm Strip Diag. Results EP Interpretation: yes Rate: 77 Rhythm: NSR, no PVC's, no ectopy Chest X-Ray Diagnostic Results Chest X-Ray Diagnostic Results : Chest X-Ray Ordered: Yes Indication: Chest Pain EP Interpretation: Yes Interpretation: no consolidation, no effusion, no pneumothorax, other - Cardiomegaly Impression: No acute disease Electronically Signed by: Kale Cotter DO Last Vital Signs Date Time Temp Pulse Resp B/P (MAP) Pulse Ox O2 Delivery O2 Flow Rate FiO2 03/08/18 07:28 98.0 75 16 163/83 94 Room Air 98.1 Status: improved Disposition: HOME, SELF-CARE Condition: Improved Referrals: BRAULIO MARK (PCP) Additional Instructions: Patient is provided with the discharge instructions notified to follow up with primary doctor in the next 2-3 days otherwise return to the er with any worsening symptoms. Please note that this report is being documented using [employer]. technology. This can lead to erroneous entry secondary to incorrect interpretation by the dictating instrument. Kale Cotter DO Mar 08, 2018 08:01
[2018-03-08 08:04] VITALS: BP 142/54
[2018-03-08 08:55] LABS: BASOPHILS % (AUTO) 1.7 % (0.0-2.0); HEMATOCRIT 41.5 % (37.0-47.0); HEMOGLOBIN 12.8 G/DL (12.0-16.0); LYMPHOCYTES % (AUTO) 28.9 % (20.0-45.0); MEAN CORPUSCULAR VOLUME 80 FL (80-99); MONOCYTES % (AUTO) 6.6 % (1.0-10.0); NEUTROPHILS % (AUTO) 49.8 % (45.0-75.0); PLATELET COUNT 287 K/UL (150-450); RED BLOOD COUNT 5.19 M/UL (4.20-5.40); RED CELL DISTRIBUTION WIDTH 16.8 % (11.6-14.8); WHITE BLOOD COUNT 8.1 K/UL (4.8-10.8)
[2018-03-08 09:05] LABS: ALANINE AMINOTRANSFERASE 13 U/L (12-78); ALBUMIN 3.2 G/DL (3.4-5.0); ALKALINE PHOSPHATASE 76 U/L (46-116); ANION GAP 9 mmol/L (5-15); ASPARTATE AMINO TRANSFERASE 17 U/L (15-37); BILIRUBIN,TOTAL 0.4 MG/DL (0.2-1.0); CALCIUM 9.8 MG/DL (8.5-10.1); CARBON DIOXIDE 21 MMOL/L (21-32); CHLORIDE 108 MMOL/L (98-107); CKMB 0.7 NG/ML (0.0-3.6); CREATINE KINASE 65 U/L (26-308); CREATININE 1.1 MG/DL (0.55-1.30); POTASSIUM 4.2 MMOL/L (3.5-5.1); SODIUM 138 MMOL/L (136-145)
[2018-03-08 09:16] LABS: BLOOD UREA NITROGEN 21 mg/dL (7-18)
[2018-03-08 10:35] VITALS: BP 136/57
--- NOTE | 2018-03-08 11:19 | Diagnostic Imaging Report ---
Indication: Chest pain Comparison: October 08, 2016 A single view chest radiograph was obtained. Findings: Cardiomegaly is present. No definite infiltrate identified. Bones are osteopenic. Lumbar kyphoplasty performed IMPRESSION: cardiomegaly no acute findings
[2018-03-08 11:54] VITALS: BP 146/58
[2018-03-08 12:05] VITALS: BP 146/58
--- NOTE | 2018-03-13 16:07 | Cardiology Report ---
APPROVED REPORT EKG Measurement Heart [id number] Normal sinus rhythm Anteroseptal infarct, age undetermined Abnormal ECG
== END 2018-03-08 12:05 ==
LOC: EDBD 07:27 → EMR 07:45 → EDBEDREQ 08:23 → CANBEDREQ 08:40 → EMR 12:05
DX: R06.02 Shortness of breath (principal); I10 Essential (primary) hypertension; J45.909 Unspecified asthma, uncomplicated; J44.9 Chronic obstructive pulmonary disease, unspecified; Z88.1 Allergy status to other antibiotic agents; Z88.2 Allergy status to sulfonamides; Z88.8 Allergy status to other drugs, medicaments and biological substances
CPT/HCPCS: 36415; 71045; 80053; 82550; 82553; 83880; 84484; 85025; 87040; 87181; 93005; 94640; 99284

== ENCOUNTER 2019-05-07 12:47 | Inpatient (IN) | payer MEDICARE, MEDICAID ==
[~2019-05-07] VITALS: Ht 157.5 cm; Wt 63.5 kg
[2019-05-07] VITALS (11 sets, daily range): BP systolic 114–179; BP diastolic 51–79
[~2019-05-07 12:47] MED LIST changes: +ATIVAN0.5 MG ORAL; +BREO ELLIPTA 21 EACH IH; +BREO ELLIPTA 21 EACH INH; +CEPHALEXIN500 MG ORAL; +DOCUSATE SODIU250 MG ORAL; +KENALOG1 APPLIC TOPIC; +MIRTAZAPINE7.5 MG ORAL; +NAPROXEN500 M2 ORAL; +OMEPRAZOLE40 M1 ORAL; +PROVENTIL HFA6.7 G1 IH; +REMERON30 MG ORAL; +SERTRALINE HCL50 MG ORAL; +ZYPREXA5 MG ORAL
--- NOTE | 2019-05-07 12:55 | NUR ---
ED Nurse Note: Patient brought in by ambulance from [facility]. per ems, patient c/o left lower leg pain s/p fall yesterday. patient denies any head trauma. EMS reports poor oral intake for the past 2 weeks. patient is a/o x2, confused, breathing unlabored and even, speaking in full sentences.
--- NOTE | 2019-05-07 13:43 | NUR ---
HAND-OFF: Report given to Wendie Doan RN.
[2019-05-07 14:14] LABS: HEMATOCRIT 39.8 % (37.0-47.0); HEMOGLOBIN 12.7 G/DL (12.0-16.0); MEAN CORPUSCULAR VOLUME 84 FL (80-99); PLATELET COUNT 203 K/UL (150-450); RED BLOOD COUNT 4.71 M/UL (4.20-5.40); RED CELL DISTRIBUTION WIDTH 14.5 % (11.6-14.8); WHITE BLOOD COUNT 14.6 K/UL (4.8-10.8)
[2019-05-07 14:28] LABS: ANION GAP 9 mmol/L (5-15); BLOOD UREA NITROGEN 39 mg/dL (7-18); CALCIUM 9.9 MG/DL (8.5-10.1); CARBON DIOXIDE 22 MMOL/L (21-32); CHLORIDE 105 MMOL/L (98-107); CREATININE 1.5 MG/DL (0.55-1.30); SODIUM 136 MMOL/L (136-145)
--- NOTE | 2019-05-07 14:32 | NUR ---
ED Nurse Note: Collected urine and sent to lab.
--- NOTE | 2019-05-07 14:38 | Diagnostic Imaging Report ---
Indication: Abdominal pain Technique: Continuous helical transaxial imaging of the abdomen and pelvis was obtained from the lung bases to the pubic symphysis. No intravenous contrast was administered. Coronal 2-D reformats were also obtained. Automatic Exposure Control was utilized. Total Dose length Product (DLP): [address] Dose Index Volume (CTDIvol): 12 mGy Comparison: none Findings: There is an acute appearing fracture of the intratrochanteric region of the right hip with avulsion of both the greater and lesser trochanters. Varus angulation noted. There is mild posterior basal atelectasis. There is a moderate size hiatal hernia. The heart is enlarged. There is a small pericardial effusion. Aorta is mildly calcified. The gallbladder is dilated. There is no hydronephrosis or renal stones identified. There are diverticula throughout the colon without definite evidence of diverticulitis. The uterus is not seen. There is no free fluid. The appendix is not definitely seen. There are no secondary signs of acute appendicitis. There is no evidence of bowel obstruction. Small hypodensity in the left lobe of the liver noted not well characterized on this study. Moderate compression fracture deformity of the L2 vertebra with the methylmethacrylate cement indicative of previous kyphoplasty noted. Bones are osteopenic. There is a mild compression fracture deformity of the T12 vertebra without significant loss of height, age-indeterminate. Correlate clinically. IMPRESSION: Comminuted right intertrochanteric hip fracture. This appears acute. Correlate clinically. Extensive diverticulosis of the colon. No definite diverticulitis. Mild T12 vertebral compression fracture, age indeterminate. Correlate clinically. Status post kyphoplasty at L2. Trace pericardial effusion. Mild posterior basal atelectasis. Atherosclerotic vascular disease. Tiny liver hypodensity not adequately characterized on this exam. Hiatal hernia The CT scanner at [facility] is accredited by the [employer] and the scans are performed using dose optimization techniques as appropriate to a performed exam including Automatic Exposure control.
[2019-05-07 14:40] LABS: ALANINE AMINOTRANSFERASE 21 U/L (12-78); ALBUMIN 3.8 G/DL (3.4-5.0); ALBUMIN/GLOBULIN RATIO 1.1 (1.0-2.7); ALKALINE PHOSPHATASE 81 U/L (46-116); ASPARTATE AMINO TRANSFERASE 23 U/L (15-37); BILIRUBIN,TOTAL 0.6 MG/DL (0.2-1.0)
[2019-05-07 14:45] LABS: APPEARANCE,URINE CLEAR; BILIRUBIN, URINE 1+ (NEGATIVE); GLUCOSE, URINE (UA) NEGATIVE (NEGATIVE); KETONES,URINE 1+ (NEGATIVE); LEUKOCYTE ESTERASE ,URINE 3+ (NEGATIVE); NITRITE,URINE NEGATIVE (NEGATIVE); PH,URINE 5 (4.5-8.0); PROTEIN,URINE 2+ (NEGATIVE); UROBILINOGEN,URINE NORMAL MG/DL (0.0-1.0)
[2019-05-07] MEDS ORDERED: Morphine Sulfate 2mg/ml Inj(IV/IM USE ONLY) IVP ONE (14:45)
[2019-05-07 14:48] LABS: COLOR,URINE YELLOW
--- NOTE | 2019-05-07 16:52 | NUR ---
ED Nurse Note: Report given to YOLA Rodgers.
[2019-05-07] MEDS ORDERED: traMADol 50mg tab ORAL PRN (17:15)
[2019-05-07] MEDS ORDERED: Albuterol ud Inhalation HHN PRN (17:15)
[2019-05-07] MEDS ORDERED: LORazepam 0.5mg tab ORAL PRN (17:15)
[2019-05-07] MEDS ORDERED: Morphine Sulfate 2mg/ml Inj(IV/IM USE ONLY) IVP PRN ×3 (17:15→19:00)
[2019-05-07] MEDS ORDERED: oxyCODONE 5mg IR tab ORAL PRN (17:15)
[2019-05-07] MEDS: Enoxaparin 30mg Inj SUBQ SCH (17:15)
[2019-05-07] MEDS ORDERED: Docusate 250mg cap ORAL PRN (17:15)
--- NOTE | 2019-05-07 17:45 | NUR ---
NURSE NOTES: I received the patient from the ER. Patient alert and oriented. monitoring coordinator placed on the patient. Patient oriented to the room. Bed in the lowest position and call light within reach. I will continue to monitor the patient and implement care.
[2019-05-07] MEDS: Naproxen 500mg tab ORAL SCH (18:00)
[2019-05-07] MEDS ORDERED: Duramorph PF 5mg/10ml amp ONE (18:22)
[2019-05-07] MEDS ORDERED: Ketorolac 30mg Inj ONE (18:22)
[2019-05-07] MEDS ORDERED: Bupivacaine 0.25% Inj 30ml INJ ONE (18:22)
[2019-05-07] MEDS ORDERED: Kenalog-40 1ml Vial ONE (18:22)
[2019-05-07] MEDS ORDERED: Lidocaine 1% 10mg/ml/Epi 0.005mg/ml 30ml vial INJ ONE (18:23)
[2019-05-07] MEDS ORDERED: Bacitracin 50000 Units Vial ONE (18:23)
[2019-05-07] MEDS ORDERED: Lidocaine 1% Plain 30 ml INJ ONE (18:23)
[2019-05-07] MEDS ORDERED: fentaNYL 100 mcg/2 mL IV ONE (18:29)
[2019-05-07] MEDS ORDERED: NS Irrig 1000ml IRRIG ONE (18:30)
[2019-05-07] MEDS ORDERED: fentaNYL 100 mcg/2 mL IV PRN (18:30)
[2019-05-07] MEDS ORDERED: Acetaminophen (Non formulary) 100 ML IV ONE (18:30)
[2019-05-07] MEDS ORDERED: Hydromorphone 0.5mg/0.5ml inj IVP PRN (18:30)
[2019-05-07] MEDS ORDERED: D5 1/2NS w/KCl 20mEq 1,000 ML IV SCH (18:46)
--- NOTE | 2019-05-07 18:47 | Pre-Procedure Note/Attestation ---
Pre-Procedure Note/Attestation Complete Prior to Procedure Planned Procedure: right Procedure Narrative: hip orif Indications for Procedure Pre-Operative Diagnosis: right hip fracture Attestation I attest that I discussed the nature of the procedure; its benefits; risks and complications; and alternatives (and the risks and benefits of such alternatives ), prior to the procedure, with the patient (or the patient's legal pharmaceutical representative). I attest that, if there was a reasonable possibility of needing a blood transfusion, the patient (or the patient's legal pharmaceutical representative) was given the [facility] standardized written summary, pursuant to the [place] Blood Safety Act ([place] Health and Safety Code # 1645, as amended). I attest that I re-evaluated the patient just prior to the surgery and that there has been no change in the patient's H&P, except as documented below: Renny Oconnor MD May 07, 2019 18:47
--- NOTE | 2019-05-07 18:47 | Operative Note - PDOC ---
Operative Note Operative Note Pre-op Diagnosis: right hip fracture Procedure: see op report Post-op Diagnosis: same as pre-op plus Operative Findings: consistent w/pre-op dx studies Anesthesia: general Specimen: none Complications: none Condition: stable Estimated Blood Loss: none Implant(s) used?: Yes Renny Oconnor MD May 07, 2019 18:47
[2019-05-07] MEDS ORDERED: LR 1000ml ONE (19:00)
[2019-05-07] MEDS ORDERED: Sterile Water Irrig 1000ml IRRIG ONE (19:00)
[2019-05-07] MEDS ORDERED: HYDROcodone/Acetamin 5/325 tab ORAL PRN (19:00)
[2019-05-07] MEDS ORDERED: Milk of Magnesia 30ml Ud ORAL PRN (19:00)
[2019-05-07] MEDS ORDERED: Phenylephrine 10mg/ml Vial ONE (19:00)
[2019-05-07] MEDS ORDERED: Metoclopramide 10mg/2ml Inj IVP PRN (19:00)
[2019-05-07] MEDS ORDERED: Lidocaine 1% MPF 10mg/ml 5ml ONE (19:21)
[2019-05-07] MEDS ORDERED: Propofol 200mg/20ml IV ONE (19:21)
--- NOTE | 2019-05-07 19:24 | NUR ---
HAND-OFF: Report given to YOLA Lei.
[2019-05-07] MEDS ORDERED: LORazepam Inj 2mg/ml 1ml IV PRN (19:45)
--- NOTE | 2019-05-07 19:46 | Immediate Post-Op Evaluation ---
Immediate Post-Op Evalulation Immediate Post-Op Evalulation Procedure: orif right hip Date of Evaluation: May 07, 2019 Time of Evaluation: 19:46 IV Fluids: 600 Blood Products: 0 Estimated Blood Loss: 10 Blood Pressure Systolic: 179 Blood Pressure Diastolic: 74 Pulse Rate: 78 Respiratory Rate: 14 O2 Sat by Pulse Oximetry: 100 Temperature (Fahrenheit): 97.4 Nausea: No Vomiting: No Complications none Patient Status: awake, reacts, patent Hydration Status: adequate Drug: ancef Given Within 1 Hr of Incision: Yes Time Given: 18:50 Susanne Bar CRNA May 07, 2019 19:46
--- NOTE | 2019-05-07 19:49 | Anethesia Preoperative Eval ---
Anesthesia Pre-op PMH/ROS General Date of Evaluation: May 07, 2019 Time of Evaluation: 18:40 Anesthesiologist: jerrica ASA Score: ASA 3 Mallampati Score Class I : Soft palate, uvula, fauces, pillars visible Class II: Soft palate, uvula, fauces visible Class III: Soft palate, base of uvula visible Class IV: Only hard plate visible Mallampati Classification: Class II Surgeon: macario Diagnosis: hip fx Surgical Procedure: ORIF Right Hip Anesthesia History: none Family History: no anesthesia problems Allergies: Coded Allergies: SULFA (SULFONAMIDE ANTIBIOTICS) (Verified Allergy, Intermediate, Rash, 06/25) SULFAMETHOXAZOLE (Verified Allergy, Intermediate, Rash, 01/17/18) TRIMETHOPRIM (Verified Allergy, Intermediate, Rash, 01/17/18) AMOXICILLIN (Verified Allergy, Unknown, 10/08/16) LEVETIRACETAM (Verified Allergy, Unknown, 10/08/16) Medications: see eMAR Patient NPO?: Yes NPO Date: May 07, 2019 NPO Time: 00:01 Past Medical History Cardiovascular: Reports: HTN Pulmonary: Reports: asthma; Denies: COPD, SARITA, other Gastrointestinal/Genitourinary: Reports: CRI; Denies: GERD, ESRD, other Endocrine: Denies: DM, hypothyroidism, steroids, other HEENT: Denies: cataract (L), cataract (R), glaucoma, ZUNI (L), ZUNI (R), other Hematology/Immune: Denies: anemia, DVT, bleeding disorder, other Musculoskeletal/Integumentary: Denies: OA, RA, DJD, DDD, edema, other PSxH Narrative: unknown Anesthesia Pre-op Phys. Exam Physician Exam Last Vital Signs Date Time Temp Pulse Resp B/P (MAP) Pulse Ox O2 Delivery O2 Flow Rate FiO2 05/07/19 17:51 Room Air 05/07/19 17:50 98.6 82 19 130/67 (88) 96 05/07/19 14:53 99 Constitutional: NAD Neurologic: CN 2-12 intact Cardiovascular: RRR Respiratory: CTA Gastrointestinal: S/NT/ND Airway Exam Mallampati Classification 3 Mallampati Score: Class II MO: full ROM: full Dentures: no upper, no lower Anesthesia Pre-op A/P Labs Hematology Test 05/07/19 13:40 White Blood Count 14.6 K/UL (4.8-10.8) H Red Blood Count 4.71 M/UL (4.20-5.40) Hemoglobin 12.7 G/DL (12.0-16.0) Hematocrit 39.8 % (37.0-47.0) Mean Corpuscular Volume 84 FL (80-99) Mean Corpuscular Hemoglobin 26.8 PG (27.0-31.0) L Mean Corpuscular Hemoglobin Concent 31.8 G/DL (32.0-36.0) L Red Cell Distribution Width 14.5 % (11.6-14.8) Platelet Count 203 K/UL (150-450) Mean Platelet Volume 8.0 FL (6.5-10.1) Neutrophils (%) (Auto) % (45.0-75.0) Lymphocytes (%) (Auto) % (20.0-45.0) Monocytes (%) (Auto) % (1.0-10.0) Eosinophils (%) (Auto) % (0.0-3.0) Basophils (%) (Auto) % (0.0-2.0) Differential Total Cells Counted 100 Neutrophils % (Manual) 92 % (45-75) H Lymphocytes % (Manual) 3 % (20-45) L Monocytes % (Manual) 5 % (1-10) Eosinophils % (Manual) 0 % (0-3) Basophils % (Manual) 0 % (0-2) Band Neutrophils 0 % (0-8) Platelet Estimate Adequate Platelet Morphology Normal Red Blood Cell Morphology Normal Coagulation Test 05/07/19 13:40 Prothrombin Time 10.4 SEC (9.30-11.50) Prothromb Time International Ratio 1.0 (0.9-1.1) Activated Partial Thromboplast Time 29 SEC (23-33) Chemistry Test 05/07/19 13:40 Sodium Level 136 MMOL/L (136-145) Potassium Level 5.0 MMOL/L (3.5-5.1) Chloride Level 105 MMOL/L (98-107) Carbon Dioxide Level 22 MMOL/L (21-32) Anion Gap 9 mmol/L (5-15) Blood Urea Nitrogen 39 mg/dL (7-18) H Creatinine 1.5 MG/DL (0.55-1.30) H Estimat Glomerular Filtration Rate mL/min (>60) Glucose Level 118 MG/DL (74-106) H Calcium Level 9.9 MG/DL (8.5-10.1) Total Bilirubin 0.6 MG/DL (0.2-1.0) Aspartate Amino Transf (AST/SGOT) 23 U/L (15-37) Alanine Aminotransferase (ALT/SGPT) 21 U/L (12-78) Alkaline Phosphatase 81 U/L (46-116) Troponin I 0.037 ng/mL (0.000-0.056) Pro-B-Type Natriuretic Peptide 329 pg/mL (0-125) H Total Protein 7.4 G/DL (6.4-8.2) Albumin 3.8 G/DL (3.4-5.0) Globulin 3.6 g/dL Albumin/Globulin Ratio 1.1 (1.0-2.7) Thyroid Stimulating Hormone (TSH) 3.317 uiU/mL (0.358-3.740) Studies Pre-op Studies: EKG - SR Risk Assessment & Plan Assessment: denies Plan: General Status Change Before Surgery: No Pre-Antibiotics Drug: ancef Given Within 1 Hr of Incision: Yes Time Given: 18:40 Susanne Bar CRNA May 07, 2019 19:49
--- NOTE | 2019-05-07 20:07 | NUR ---
NURSE NOTES: Received pt from YOLA Rodgers. Pt is still off unit.
[2019-05-07] MEDS ORDERED: Atorvastatin 20mg tab ORAL SCH (21:00)
--- NOTE | 2019-05-07 21:13 | NUR ---
NURSE NOTES: Received pt from YOLA Blandon. Pt asleep. Surgical dressing on R. Hip covered with 4x4, tegaderm, and steri-strips. Bed in lowest position. Call light within reach. Will continue to monitor.
--- NOTE | 2019-05-07 22:00 | History and Physical Report ---
DATE OF ADMISSION: 05/07/2019 CHIEF COMPLAINT AND REASON FOR HOSPITALIZATION: The patient is admitted with recurrent ground level falls and the right hip fracture. HISTORY OF PRESENT ILLNESS: The patient has had frequent falls at her assisted living facility with the emergency room visits 2 times in the last 3 weeks and frequent falls prior to this without any injuries. Today, she had a ground level fall and now has a right intertrochanteric fracture. The patient generally walks well with a walker, but because of her underlying dementia and psychosis, she tends to not pay attention to her walking, her mind is wandering, and her anxiety lead to unsafe walking and recurrent falls. This has been discussed in detail with the family and caretakers. The patient has dementia of the Alzheimer's type, history of chronic psychosis and paranoid delusions, rheumatoid arthritis, asthma well controlled, hyperlipidemia, and hypertension. She has been seen multiple times in the past. Has had no evidence of stroke. No orthostatic hypotension. No arrhythmias or angina. SURGERIES: Appendectomy. ALLERGIES: Bactrim. HABITS: She is a nondrinker and nonsmoker. No use of illicit drugs. MEDICATIONS: Tylenol 650 every 4 hours p.r.n., albuterol HHN p.r.n., DOD 250 daily, ProAir inhaler p.r.n., tramadol 50 mg q.i.d. p.r.n., lorazepam 0.5 mg daily p.r.n., mirtazapine 30 mg at bedtime, olanzapine at bedtime 5 mg, sertraline 50 mg daily, alendronate 70 mg weekly, atorvastatin 20 mg daily, Breo Ellipta inhaler 1 puff every day, hydroxychloroquine 200 mg daily, levothyroxine 0.05 mg daily, losartan 50 mg daily, naproxen 500 mg b.i.d., omeprazole 40 mg daily, nitrofurantoin 100 mg 2 times a day starting 04/24/2019 for 10 days completed for UTI. SYSTEM REVIEW: HEAD, EYES, EARS, NOSE, AND THROAT: She wears eye glasses. She has decreased visual acuity and mild decreased hearing. ENDOCRINE: History of hypothyroidism, on replacement. No diabetes. PULMONARY: History of tuberculosis as a child. Treated in the [facility]. History of asthma. No recent wheezing or cough. CARDIAC: History of hypertension and hyperlipidemia. No angina or [place]. GASTROINTESTINAL: She has had intermittent gastritis. No nausea, vomiting, hematochezia, or melena. GENITOURINARY: She has had recurrent UTIs and has had ESBL in the urine in the past. No hematuria or kidney stones. NEUROLOGIC: No CVA or seizures, but she has cognitive impairment. MUSCULOSKELETAL: History of rheumatoid arthritis with stable joint findings clinically. She uses a walker. PSYCHIATRIC: History of paranoid delusions and chronic depression. 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 It has been elected not to treat as surgery would be debilitating and this has not grown in size over the last year. CODE STATUS: DNR/DNI. PHYSICAL EXAMINATION: GENERAL: The patient is seen in the ICU. She is alert and in no acute distress, but she is uncomfortable in bed. VITAL SIGNS: Temperature 92, pulse 81, respirations 18, O2 saturation 99, and blood pressure 149/68. HEENT: Sclerae are nonicteric. Ocular motion intact in all directions. Oral mucosa moist. NECK: No adenopathy. LUNGS: Clear. HEART: Regular rhythm. No murmur. ABDOMEN: Soft without organomegaly or masses. EXTREMITIES: No edema, cyanosis, or clubbing. There is pain with range of motion of the right hip. There are rheumatoid changes in the hands, but no acute inflammation. NEUROLOGIC: She is alert and responsive. Speech is clear. Ocular motion is intact in all directions. Smile symmetric. Tongue is midline. She moves all extremities. The right jaw has about 1 to 1.5 cm mass unchanged from the past. LABORATORY AND DIAGNOSTIC DATA: Pertinent labs show white count of 14.6, hemoglobin 12.7, and platelets 203,000. Electrolytes normal. BUN 39 and creatinine 1.5. Troponin 0.037. IMPRESSION: 1. Ground level falls, recurrent. 2. Right hip intertrochanteric fracture. 3. Rheumatoid arthritis. 4. Asthma, stable. 5. Hypertension, stable. 6. Pyuria with a history of recurrent UTIs. 7. Dementia of the Alzheimer's type. 8. 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 9. Gait disorder. 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 PLAN: The patient is cleared for surgery. Orders have been given. Case is discussed with Dr. Guillermo Oconnor, orthopedic surgeon and with her family with respect her wishes for DNR. Mike Tovar M.D. DR: JENNYFER JOB#: [id number] CC:
--- NOTE | 2019-05-07 22:02 | Emergency Room Report ---
History of Present Illness General Chief Complaint: General Complaint Source: Patient Present Illness HPI Patient presented after a fall at her facility today. Hospitalized in past few weeks . Normally ambulates with a walker. After fall with increased pain to right hip today.Patient had some known prior history of dementia. She apparently had some prior history of dementia. Patient was sent in by Dr. Tovar. History is limited by patient being a poor historian. Allergies: Coded Allergies: SULFA (SULFONAMIDE ANTIBIOTICS) (Verified Allergy, Intermediate, Rash, 06/25) SULFAMETHOXAZOLE (Verified Allergy, Intermediate, Rash, 01/17/18) TRIMETHOPRIM (Verified Allergy, Intermediate, Rash, 01/17/18) AMOXICILLIN (Verified Allergy, Unknown, 10/08/16) LEVETIRACETAM (Verified Allergy, Unknown, 10/08/16) Patient History Past Medical History: old chart reviewed Now: No Reviewed Nursing Documentation: PMH: Agreed; PSxH: Agreed Nursing Documentation-PMH Past Medical History: No History, Except For Hx Cardiac Problems: Yes Hx Hypertension: Yes Hx Asthma: Yes Hx COPD: Yes Hx Cancer: No Hx Gastrointestinal Problems: Yes History Of Psychiatric Problem: Yes - PSYCHOSIS, DEMENTIA Hx Neurological Problems: Yes Hx Weakness: Yes Review of Systems All Other Systems: limited - Review of systems: Review systems is limited by patient's being a poor historian Physical Exam Vital Signs Date Time Temp Pulse Resp B/P (MAP) Pulse Ox O2 Delivery O2 Flow Rate FiO2 05/07/19 12:47 98.2 79 18 149/68 (95) 95 Room Air 05/07/19 14:53 99 05/07/19 19:35 6 General Appearance: alert, non-toxic, Chronically Ill Head: normocephalic Eyes: bilateral eye PERRL ENT: hearing grossly normal Neck: limited range of motion Respiratory: chest non-tender, lungs clear, normal breath sounds Cardiovascular #1: normal inspection Gastrointestinal: normal inspection, soft Musculoskeletal: decreased range of motion - right hip externally rotated and shortened Neurologic: alert, responsive Psychiatric: normal inspection Skin: no rash Medical Decision Making Diagnostic Impression: Primary Impression: Fall Additional Impressions: Closed right hip fracture T12 compression fracture Urinary tract infection ER Course Patient presented after a fall. Differential diagnosis included was not limited to neck fracture, CVA, close head injury, hip fracture, syncopal episode , basilar ischemia. CT of the abdomen pelvis read by radiology showed right intertrochanteric fracture. Patient was awake and alert and somewhat confused. Apparently this is the patient's baseline. Patient has external rotation and shortening consistent with hip fracture. Patient discussed with Dr. Tovar for inpatient management. Dr. Guillermo Oconnor was contacted for orthopedic consult after discussion with Dr. Tovar. Labs Test 05/07/19 13:40 05/07/19 14:30 White Blood Count 14.6 K/UL (4.8-10.8) Red Blood Count 4.71 M/UL (4.20-5.40) Hemoglobin 12.7 G/DL (12.0-16.0) Hematocrit 39.8 % (37.0-47.0) Mean Corpuscular Volume 84 FL (80-99) Mean Corpuscular Hemoglobin 26.8 PG (27.0-31.0) Mean Corpuscular Hemoglobin Concent 31.8 G/DL (32.0-36.0) Red Cell Distribution Width 14.5 % (11.6-14.8) Platelet Count 203 K/UL (150-450) Mean Platelet Volume 8.0 FL (6.5-10.1) Neutrophils (%) (Auto) % (45.0-75.0) Lymphocytes (%) (Auto) % (20.0-45.0) Monocytes (%) (Auto) % (1.0-10.0) Eosinophils (%) (Auto) % (0.0-3.0) Basophils (%) (Auto) % (0.0-2.0) Differential Total Cells Counted 100 Neutrophils % (Manual) 92 % (45-75) Lymphocytes % (Manual) 3 % (20-45) Monocytes % (Manual) 5 % (1-10) Eosinophils % (Manual) 0 % (0-3) Basophils % (Manual) 0 % (0-2) Band Neutrophils 0 % (0-8) Platelet Estimate Adequate Platelet Morphology Normal Red Blood Cell Morphology Normal Prothrombin Time 10.4 SEC (9.30-11.50) Prothromb Time International Ratio 1.0 (0.9-1.1) Activated Partial Thromboplast Time 29 SEC (23-33) Sodium Level 136 MMOL/L (136-145) Potassium Level 5.0 MMOL/L (3.5-5.1) Chloride Level 105 MMOL/L (98-107) Carbon Dioxide Level 22 MMOL/L (21-32) Anion Gap 9 mmol/L (5-15) Blood Urea Nitrogen 39 mg/dL (7-18) Creatinine 1.5 MG/DL (0.55-1.30) Estimat Glomerular Filtration Rate mL/min (>60) Glucose Level 118 MG/DL (74-106) Calcium Level 9.9 MG/DL (8.5-10.1) Total Bilirubin 0.6 MG/DL (0.2-1.0) Aspartate Amino Transf (AST/SGOT) 23 U/L (15-37) Alanine Aminotransferase (ALT/SGPT) 21 U/L (12-78) Alkaline Phosphatase 81 U/L (46-116) Troponin I 0.037 ng/mL (0.000-0.056) Pro-B-Type Natriuretic Peptide 329 pg/mL (0-125) Total Protein 7.4 G/DL (6.4-8.2) Albumin 3.8 G/DL (3.4-5.0) Globulin 3.6 g/dL Albumin/Globulin Ratio 1.1 (1.0-2.7) Thyroid Stimulating Hormone (TSH) 3.317 uiU/mL (0.358-3.740) Urine Color Yellow Urine Appearance Clear Urine pH 5 (4.5-8.0) Urine Specific [place] 1.025 (1.005-1.035) Urine Protein 2+ (NEGATIVE) Urine Glucose (UA) Negative (NEGATIVE) Urine Ketones 1+ (NEGATIVE) Urine Blood Negative (NEGATIVE) Urine Nitrite Negative (NEGATIVE) Urine Bilirubin 1+ (NEGATIVE) Urine Ictotest Negative (NEGATIVE) Urine Urobilinogen Normal MG/DL (0.0-1.0) Urine Leukocyte Esterase 3+ (NEGATIVE) Urine RBC 0-2 /HPF (0 - 2) Urine WBC 15-20 /HPF (0 - 2) Urine Squamous Epithelial Cells Few /LPF (NONE/OCC) Urine Bacteria Few /HPF (NONE) Urine Yeast Few /HPF (NONE) Last Vital Signs Date Time Temp Pulse Resp B/P (MAP) Pulse Ox O2 Delivery O2 Flow Rate FiO2 05/07/19 20:55 97.1 88 19 123/58 99 Nasal Cannula 3 88 05/07/19 14:53 99 Status: unchanged Disposition: ADMITTED INPATIENT Condition: Serious Referrals: Mike Tovar MD (PCP) Jose Mendenhall MD May 07, 2019 22:02
--- NOTE | 2019-05-07 23:45 | Consultation ---
DATE OF CONSULTATION: 05/07/2019 CHIEF COMPLAINT: Right hip pain. HISTORY OF PRESENT ILLNESS: The patient is a pleasant female who has had a history of multiple falls. She was subsequently brought to the emergency room where she was diagnosed with right intertrochanteric hip fracture. Orthopedic consultation was obtained for further care and recommendation. PAST MEDICAL HISTORY: Reviewed from the intake chart. PAST SURGICAL HISTORY: Reviewed from the intake chart. MEDICATIONS: Reviewed from the intake chart. PHYSICAL EXAMINATION: GENERAL: The patient is alert. She is resting comfortably on bed. EXTREMITIES: She has pain with internal and external rotation of the right hip. Posterior calf is soft. Neurovascular is normal. LABORATORY AND DIAGNOSTIC DATA: CT scan shows a three-part intertrochanteric hip fracture . ASSESSMENT: Right three-part intertrochanteric hip fracture. DISCUSSION: At this point, she would need operative fixation. Risks, limitations, complications of the procedure discussed in detail. All questions were addressed. I spoke with Dr. Tovar, who said that she optimized, she may have syncope, shortness of breath and she ate breakfast in the morning. We will check her labs and when she is medically optimized, we will proceed with open reduction and internal fixation later on tonight. Renny Oconnor M.D. DR: Arnaldo JOB#: [id number] CC: PAVAN
--- NOTE | 2019-05-08 | NUR ---
NURSE NOTES: pt. was trying to OOB and removed IV access on R. wrist. failure to insert new IV line. multiple time attempted to insert the line. Addendum: 05/09/19 at 0246 by Sera Ramires RN document wrong time and date
--- NOTE | 2019-05-08 03:01 | Operative Note - Dictated ---
DATE OF OPERATION: 05/07/2019 PREOPERATIVE DIAGNOSIS: Right three-part intertrochanteric hip fracture. POSTOPERATIVE DIAGNOSIS: Right three-part intertrochanteric hip fracture. PROCEDURE: Open reduction internal fixation of right intertrochanteric hip fracture with intramedullary device. SURGEON: Renny Oconnor M.D. ANESTHESIA: General. INDICATION: The patient is a pleasant female, who sustained a mechanical fall. She was diagnosed with a three-part intertrochanteric fracture which is indicative of operative fixation. Risks, limitations, expectations, and complications of the procedure were discussed in detail. All questions addressed. DESCRIPTION OF PROCEDURE: After informed consent was obtained, the patient was brought to the operating room. The patient was placed under general anesthesia. Right leg was prepped and draped in a sterile manner. Once she was placed on the fracture table, reduction of the fracture was performed under fluoroscopy. Once adequate reduction was performed, the right hip was prepped and draped in a sterile manner. Time-out was performed. Ancef was administered. A standard lateral skin incision was then made. Trocar was placed in the proximal aspect of the femur. Proximal aspect of the femur was opened up. Short nail was selected and placed. The isthmus was very tight and therefore the guidewire was then placed and the isthmus was reamed with a 12 mm reamer. Once that was done, a short Gamma nail was then selected. Guidewire was then placed in the neck head junction. An 80 mm screw was selected. Compression along the fracture site was performed, distal 32.5 mm locking screw was placed. Once that was done, the instruments were removed. Portal sites were closed using 3-0 Monocryl suture. Steri-Strips and a sterile dressing were applied. The patient was awoken and taken to recovery room with stable vital signs. ESTIMATED BLOOD LOSS: None. COMPLICATIONS: None. SPECIMENS: None. IMPLANTS: Include 125 angle short gamma nail, 80 mm cannulated screw, 32.5 distal locking screw. Renny Oconnor M.D. DR: Arnaldo JOB#: [id number] CC:
[2019-05-08] MEDS: ceFAZolin sod 2 GM in D5W 110 ML IV SCH ×2 (03:02→11:33)
[2019-05-08 04:00] VITALS: BP 117/62
--- NOTE | 2019-05-08 06:46 | NUR ---
NURSE NOTES: Called and spoke with Dr. Tovar regarding pts order for fluids w/ potassium and pts current K lab value of 5. Dr. Tovar ordered to change the rate to 50cc/hr and if the patient is eating well, change to heplock. Will input order and will continue to monitor.
--- NOTE | 2019-05-08 07:14 | CDS Physician Query ---
Clarification is required for compliance, coding accuracy, and to reflect severity of illness for this patient Dear Dr. Mike Tovar M.D. Date: 05/08/2019 Wire Drawing Setter/CDS Name: Javier Estrella The patient is admitted with recurrent ground level falls and the right hip fracture. She has had recurrent UTIs and has had ESBL in the urine in the past. No hematuria or kidney stones. IMPRESSION: Pyuria with a history of recurrent UTIs. Labs: Cr: 1.5 Tx: IV SODIUM CLORIDE 1000mL; IV DEXTROSE Please Clarify the type of renal failure below: Etiology [] Acute Renal Failure [] Acute Renal Failure w/ Tubular Necrosis [] Acute Renal Failure w/ Cortical Necrosis [] Acute Renal Failure w/ Medullary Necrosis [] Acute Renal Failure (unspecified) [] Other: Present on Admission: [] Yes [] No [] Clinically Undetermined Physician signature Date Please also document in your Progress Notes and/or Discharge Summary and indicate if the condition was present on admission. ADALGISAD
--- NOTE | 2019-05-08 07:30 | NUR ---
NURSE NOTES: Report received from YOLA Lei. Pt. sleeping comfortably, aroused easily by name. Denies SOB or pain. AOx1. R wrist 22g IV running 1/2 NS at 125cc/mL. Bed on lowest position, side rails upx2, brakes engaged, alarm on. Call light placed within reach. Pt. demonstrated how to use call light.
--- NOTE | 2019-05-08 07:48 | NUR ---
HAND-OFF: Report given to YOLA Leslie. Pt stable.
[2019-05-08 08:00] VITALS: BP 111/63
[2019-05-08] MEDS ORDERED: D5 1/2NS w/KCl 20mEq 1,000 ML IV SCH (08:00)
[2019-05-08] MEDS ORDERED: Breo Ellipta 200/25mcg-14 dose INH SCH (09:00)
[2019-05-08] MEDS ORDERED: celeBREX 200mg Cap **SURGERY PATIENTS ONLY ORAL SCH (09:00)
[2019-05-08] MEDS ORDERED: Losartan 50mg tab ORAL SCH (09:00)
[2019-05-08] MEDS ORDERED: Sertraline 50mg tab ORAL SCH (09:00)
--- NOTE | 2019-05-08 09:15 | NUR ---
PT EVALUATION NOTE Patient seen for initial evaluation, see complete evaluation for details. Patient presents with limited mobility and pain s/p R hip fx ORIF. Patient requires max/dependent assist of 2 people for bed mobility and transfer tasks. Unable to assume full standing position due to pain and weakness. Patient will benefit from skilled inpatient PT intervention to address strength, balance and safety for improved functional mobility and increased safety awareness. Recommend discharge to SNF for further rehab once medically cleared by MD. DME needs to be determined. Addendum: 05/08/19 at 1109 by JESSICA RIOS PT Amended: Links added.
--- NOTE | 2019-05-08 09:25 | 48 Hour Post Anesthesia Eval ---
Post Anesthesia Evaluation Procedure: orif right hip Date of Evaluation: May 08, 2019 Time of Evaluation: 09:24 Blood Pressure Systolic: 116 0: 68 Pulse Rate: 64 Respiratory Rate: 18 Temperature (Fahrenheit): 97.9 O2 Sat by Pulse Oximetry: 98 Airway: patent Nausea: No Vomiting: No Pain Intensity: 2 Hydration Status: adequate Cardiopulmonary Status: stable Mental Status/LOC: patient returned to baseline Follow-up Care/Observations: n/a Post-Anesthesia Complications: none Follow-up care needed: N/A Salinas Slaughter MD May 08, 2019 09:25
[2019-05-08] MEDS: Docusate 100mg cap ORAL SCH ×3 (09:26→18:44)
[2019-05-08] MEDS: Naproxen 500mg tab ORAL SCH ×2 (09:33→18:44)
[2019-05-08] MEDS: Enoxaparin 30mg Inj SUBQ SCH (09:36)
[2019-05-08 09:45] LABS: ANION GAP 12 mmol/L (5-15); BLOOD UREA NITROGEN 40 mg/dL (7-18); CARBON DIOXIDE 21 MMOL/L (21-32); CHLORIDE 105 MMOL/L (98-107); CREATININE 1.6 MG/DL (0.55-1.30); SODIUM 138 MMOL/L (136-145)
[2019-05-08 12:00] VITALS: BP 127/54
--- NOTE | 2019-05-08 12:04 | Diagnostic Imaging Report ---
Indication: Intraoperative imaging COMPARISON: None FINDINGS: Multiple fluoroscopic images were obtained intraoperatively. Dynamic hip screw placement on the right demonstrated on multiple images obtained. This is for reduction of an intertrochanteric fracture. Fluoroscopic time 34 seconds. IMPRESSION: Intraoperative imaging as described above
[2019-05-08 13:21] LABS: BASOPHILS % (AUTO) 1.1 % (0.0-2.0); EOSINOPHILS % (AUTO) 3.1 % (0.0-3.0); HEMATOCRIT 29.4 % (37.0-47.0); HEMOGLOBIN 9.3 G/DL (12.0-16.0); LYMPHOCYTES % (AUTO) 6.7 % (20.0-45.0); MEAN CORPUSCULAR VOLUME 85 FL (80-99); MONOCYTES % (AUTO) 8.3 % (1.0-10.0); NEUTROPHILS % (AUTO) 80.8 % (45.0-75.0); PLATELET COUNT 169 K/UL (150-450); RED BLOOD COUNT 3.45 M/UL (4.20-5.40); RED CELL DISTRIBUTION WIDTH 14.5 % (11.6-14.8); WHITE BLOOD COUNT 10.2 K/UL (4.8-10.8)
--- NOTE | 2019-05-08 14:09 | NUR ---
PACKAGING MACHINE OPERATOR NOTES INQUIRY FAXED TO [facility] AND [facility]. Addendum: 05/08/19 at 1411 by HALEY GORDILLO RN RN [facility].
--- NOTE | 2019-05-08 14:10 | NUR ---
NURSE NOTES: Informed Dr. Tovar Pt didn't urinate since morning. Balder scan done 452mL. order to put FC for a residual >350. Order to be carried out.
--- NOTE | 2019-05-08 14:20 | NUR ---
NURSE NOTES: Pt. was able to urinate.
--- NOTE | 2019-05-08 14:57 | NUR ---
CASE MANAGEMENT: INITIAL REVIEW 88 YR OLD FEMALE BIBA FROM [facility] CC:GENERAL COMPLAINT SI:T12 COMPRESSION FX, CLOSED RIGHT HIP FRACTURE 98.2 79 18 149/68 95% ON RA BUN 39; CRE 1.5; WBC 14.6; BNP 329 IS: IVF NS X1 IV CEFAZOLIN Q8HR X2 BAGS : TO 2E TELE UNIT PLAN: ORIF RIGHT HIP
--- NOTE | 2019-05-08 15:39 | NUR ---
DISCHARGE PLANNING: SPOKE TO RADHA FROM [facility] T:[phone] F: [phone] PATIENT HAS BEEN ACCEPTED TO [facility] WHEN MEDICALLY CLEARED
[2019-05-08 16:00] VITALS: BP 136/77
--- NOTE | 2019-05-08 17:05 | NUR ---
NURSE NOTES: Pt. urinated 300mL. Cleaned. Made comfortable.
--- NOTE | 2019-05-08 17:10 | NUR ---
TRANSFER TO FLOOR: Patient transferred to , per Dr. Tovar. Report given to YOLA Ruby. Belongings and medications given to Tung. Son in law and daughter informed of transfer.
[2019-05-08] MEDS ORDERED: Albuterol ud Inhalation HHN PRN (18:01)
[2019-05-08] MEDS ORDERED: Docusate 250mg cap ORAL PRN (18:02)
[2019-05-08] MEDS ORDERED: Metoclopramide 10mg/2ml Inj IVP PRN (18:03)
[2019-05-08] MEDS ORDERED: HYDROcodone/Acetamin 5/325 tab ORAL PRN (18:03)
[2019-05-08] MEDS ORDERED: LORazepam 0.5mg tab ORAL PRN (18:03)
[2019-05-08] MEDS ORDERED: Milk of Magnesia 30ml Ud ORAL PRN (18:04)
[2019-05-08] MEDS ORDERED: Morphine Sulfate 2mg/ml Inj(IV/IM USE ONLY) IVP PRN ×2 (18:04)
[2019-05-08] MEDS ORDERED: traMADol 50mg tab ORAL PRN (18:05)
[2019-05-08] MEDS ORDERED: oxyCODONE 5mg IR tab ORAL PRN (18:05)
--- NOTE | 2019-05-08 19:50 | NUR ---
HAND-OFF: Report given to YOLA Pak.
[2019-05-08 20:00] VITALS: BP 112/65
--- NOTE | 2019-05-08 20:00 | NUR ---
NURSE NOTES: Received pt in bed. AAOx1. on R. hip surgical dressing present. No c/o pain. Bed in lowest position. Call light within reach. Will continue to provide plan of care.
[2019-05-08] MEDS ORDERED: Iron Sucrose 100 MG in NS 55 ML IV SCH (21:00)
[2019-05-08] MEDS: Iron Sucrose 100 MG in NS 55 ML IV SCH (21:20)
[2019-05-08] MEDS: Atorvastatin 20mg tab ORAL SCH (21:21)
[2019-05-09] VITALS: BP 154/91
--- NOTE | 2019-05-09 | NUR ---
NURSE NOTES: pt. was trying to OOB and removed IV access on R. wrist. failure to insert new IV line. multiple time attempted to insert the IV line.
--- NOTE | 2019-05-09 01:31 | Progress Note ---
DATE: 05/08/2019 SUBJECTIVE: The patient has episodes of anxiety and agitation. The patient is disoriented, poor historian, follows directions. She is on Seroquel, Zoloft, temazepam, mirtazapine, and Ativan. The patient has resting tremors. MENTAL STATUS EXAMINATION: Alert and oriented times self. Mood is neutral. Affect is flat. Thought process, concrete. Thought content, no suicidal or homicidal ideation. Cognition is impaired. ASSESSMENT: 1. Anxiety disorder. 2. Depression. PLAN: 1. We will continue the Zoloft, continue the Remeron. 2. Continue the Seroquel. 3. Provide the patient with reality orientation. Christiano Klein M.D. DR: KIET JOB#: [id number] CC:
[2019-05-09 04:00] VITALS: BP 109/53
[2019-05-09 06:37] LABS: BASOPHILS % (AUTO) 0.9 % (0.0-2.0); EOSINOPHILS % (AUTO) 3.7 % (0.0-3.0); HEMATOCRIT 27.7 % (37.0-47.0); HEMOGLOBIN 8.9 G/DL (12.0-16.0); LYMPHOCYTES % (AUTO) 4.5 % (20.0-45.0); MEAN CORPUSCULAR VOLUME 84 FL (80-99); MONOCYTES % (AUTO) 8.9 % (1.0-10.0); NEUTROPHILS % (AUTO) 81.9 % (45.0-75.0); PLATELET COUNT 162 K/UL (150-450); RED CELL DISTRIBUTION WIDTH 14.3 % (11.6-14.8); WHITE BLOOD COUNT 11.3 K/UL (4.8-10.8)
[2019-05-09 06:51] LABS: ANION GAP 11 mmol/L (5-15); BLOOD UREA NITROGEN 32 mg/dL (7-18); CARBON DIOXIDE 22 MMOL/L (21-32); CHLORIDE 105 MMOL/L (98-107); CREATININE 1.4 MG/DL (0.55-1.30); POTASSIUM 4.8 MMOL/L (3.5-5.1); SODIUM 138 MMOL/L (136-145)
--- NOTE | 2019-05-09 07:30 | NUR ---
NURSE NOTES: Received patient on bed, asleep. Patient had removed IV access on the previous shift, will attempt to start another. Bed in low and locked position, call light in reach. Dressing dry and intact. No signs of respiratory distress or pain. Room board updated, will continue to monitor.
--- NOTE | 2019-05-09 07:35 | NUR ---
HAND-OFF: Report given to Tung ACEVES.
[2019-05-09 08:00] VITALS: BP 111/59
[2019-05-09] MEDS: celeBREX 200mg Cap **SURGERY PATIENTS ONLY ORAL SCH (10:21)
[2019-05-09] MEDS: Docusate 100mg cap ORAL SCH ×4 (10:21→18:42)
[2019-05-09] MEDS: Naproxen 500mg tab ORAL SCH ×3 (10:21→18:42)
[2019-05-09] MEDS: Sertraline 50mg tab ORAL SCH (10:22)
[2019-05-09] MEDS: Losartan 50mg tab ORAL SCH (10:22)
[2019-05-09] MEDS: Enoxaparin 30mg Inj SUBQ SCH (10:24)
[2019-05-09] MEDS: Breo Ellipta 200/25mcg-14 dose INH SCH (10:34)
[2019-05-09 12:00] VITALS: BP 125/56
--- NOTE | 2019-05-09 12:40 | NUR ---
SS note This SW received a consult to assist with a home safety evaluation. Patient is confused, from a board and care, while family are planning assisted placement into SNF. This Sw spoke with son-in-law, Lester Del Rio (cell: [phone]) who explains he plans for patient to discharge to SNF ferry [facility] supervisor; will know later today which facility they would like patient to go to (Lester will be here to inform case management/nursing later this afternoon).
--- NOTE | 2019-05-09 13:02 | NUR ---
CASE MANAGEMENT: REVIEW 05/09/19 SI:POD# 2; S/P RIGHT ORIF 98.2 79 18 149/68 95% ON RA BUN 32; CRE 1.4; WBC 11.3; H/H 8.9/27.7 IS: IVF NS @75HR IV IRON SUCROSE HS FEOSOL PO TID NORVASC PO QD CELEBREX PO QD LOVENOX SQ QD BREO ELLIPTA PO QD PLAQUENIL PO QD COZAAR PO QD PROTONIX PO QD ZOLOFT PO QD LIPITOR PO QHS SEROQUEL PO QHS NAPROXEN PO BID :MED SURG UNIT DCP: SNF PLACEMENT WHEN DISCHARGE
--- NOTE | 2019-05-09 15:23 | Cardiology Report ---
APPROVED REPORT EKG Measurement Heart [id number] NH 148P72 [id number] TMp019 Normal sinus rhythm with sinus arrhythmia Possible Anterior infarct, age undetermined Abnormal ECG
--- NOTE | 2019-05-09 15:58 | NUR ---
DISCHARGED PLAN: DISCUSSED DISCHARGE WITH FAMILY AT BEDSIDE PATIENT HAS CHOSEN [facility] SPOKE TO DASH FROM [facility] T: [phone] (DIRECTOR) (ANY ISSUE PLEASE CALL) PATIENT HAS BEEN ACCEPTED TO FACILITY T: [phone] FOR NURSE TO NURSE REPORT ROOM# [id number] SKILLED PLEASE CALL TO SET UP TRANSPORTATION PLEASE CALL SON IN LAW AND MAKE AWARE TO DISCHARGE T:[phone] Addendum: 05/09/19 at 1606 by LUISITO HUERTA LVN NO DISCHARGE ORDER AT THIS TIME
[2019-05-09 16:00] VITALS: BP 130/91
--- NOTE | 2019-05-09 19:00 | NUR ---
NURSE NOTES: Patient refused naproxen and colace scheduled dose. Risks versus benefits explained.
--- NOTE | 2019-05-09 19:01 | NUR ---
NURSE NOTES: Patient voided. Incontinent, unable to measure amount.
--- NOTE | 2019-05-09 19:54 | General Progress Note ---
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) SNOMED: 705236563 (6) Rheumatoid arthritis ICD Codes: M06.9 - Rheumatoid arthritis, unspecified SNOMED: 66620390 (7) Hip fracture ICD Codes: S72.009A - Fracture of unspecified part of neck of unspecified femur , initial encounter for closed fracture SNOMED: 059669710 (8) Closed right hip fracture ICD Codes: S72.001A - Fracture of unspecified part of neck of right femur, initial encounter for closed fracture SNOMED: 723134053 (9) Fall ICD Codes: W19.XXXA - Unspecified fall, initial encounter SNOMED: 3571480, 075586657 Assessment/Plan: pvr 200, keep noriega out , PT d/w family ecf soon Subjective Constitutional: Reports: weakness HEENT: Reports: no symptoms Cardiovascular: Reports: no symptoms Respiratory: Reports: no symptoms Gastrointestinal/Abdominal: Reports: no symptoms Genitourinary: Reports: incontinence Neurologic/Psychiatric: Reports: pre-existing deficit Endocrine: Reports: no symptoms Hematologic/Lymphatic: Reports: anemia Allergies: Coded Allergies: SULFA (SULFONAMIDE ANTIBIOTICS) (Verified Allergy, Intermediate, Rash, 06/25) SULFAMETHOXAZOLE (Verified Allergy, Intermediate, Rash, 01/17/18) TRIMETHOPRIM (Verified Allergy, Intermediate, Rash, 01/17/18) AMOXICILLIN (Verified Allergy, Unknown, 10/08/16) LEVETIRACETAM (Verified Allergy, Unknown, 10/08/16) Objective Last 24 Hour Vital Signs Date Time Temp Pulse Resp B/P (MAP) Pulse Ox O2 Delivery O2 Flow Rate FiO2 05/09/19 16:00 97.3 96 18 130/91 (104) 96 11/1/19 12:00 98.1 82 18 125/56 (79) 95 05/09/19 10:44 79 14 95 Room Air 21 05/09/19 10:41 72 14 91 Room Air 21 05/09/19 10:23 73 121/53 05/09/19 10:22 121/56 05/09/19 09:43 Room Air 05/09/19 09:12 76 18 93 Room Air 21 05/09/19 08:00 97.5 89 19 111/59 (76) 100 05/09/19 04:00 97.5 77 19 109/53 (71) 92 05/09/19 00:00 98.4 84 20 154/91 (112) 100 20 05/08/19 21:47 Room Air 05/08/19 20:00 97.3 74 19 112/65 (81) 98 19 Intake and Output 05/08/19 05/09/19 19:00 07:00 Intake Total 525 ml Output Total 410 ml Balance 115 ml IV Total 525 ml Output Urine Total 400 ml Estimated Blood Loss 10 ml # Voids 1 Laboratory Tests 05/09/19 05:30: White Blood Count 11.3H, Red Blood Count 3.30L, Hemoglobin 8.9L, Hematocrit 27.7L, Mean Corpuscular Volume 84, Mean Corpuscular Hemoglobin 26.8L, Mean Corpuscular Hemoglobin Concent 32.0, Red Cell Distribution Width 14.3, Platelet Count 162, Mean Platelet Volume 8.0, Neutrophils (%) (Auto) 81.9H, Lymphocytes ( %) (Auto) 4.5L, Monocytes (%) (Auto) 8.9, Eosinophils (%) (Auto) 3.7H, Basophils (%) (Auto) 0.9, Sodium Level 138, Potassium Level 4.8, Chloride Level 105, Carbon Dioxide Level 22, Anion Gap 11, Blood Urea Nitrogen 32H, Creatinine 1.4H, Estimat Glomerular Filtration Rate , Glucose Level 109H, Calcium Level 9.0 Height (Feet): 5 Height (Inches): 2.00 Weight (Pounds): 140 General Appearance: no apparent distress, alert EENT: normal ENT inspection Neck: normal alignment Cardiovascular: normal rate Respiratory/Chest: lungs clear Abdomen: non tender, soft Extremities: other - mild r hip pain, RA changes hands Lang,Mike MD May 09, 2019 19:54
[2019-05-09 20:00] VITALS: BP 127/60
--- NOTE | 2019-05-09 20:00 | NUR ---
NURSE NOTES: PATIENT ALERT TO NAME ONLY. NO DISTRESS NOTED. NO COMPLAINTS OF PAIN. RIGHT HIP DRESSING INTACT AND DRY. PATIENT INCONTINENT. BED IN LOWEST POSITION, CALL LIGHT WITHIN REACH, BED ALARM ON. WILL CONTINUE TO MONITOR.
[2019-05-09] MEDS: Iron Sucrose 100 MG in NS 55 ML IV SCH (20:41)
[2019-05-09] MEDS: Atorvastatin 20mg tab ORAL SCH (20:41)
[2019-05-10] VITALS: BP 132/69
--- NOTE | 2019-05-10 02:36 | NUR ---
NURSE NOTES: PATIENT HAD PULLED OUT IV ACCESS. NURSE, CHARGE NURSE, AND ICU NURSE ATTEMPTED TO GET NEW IV ACCESS, BUT WERE UNSUCCESSFUL.
--- NOTE | 2019-05-10 03:15 | Progress Note ---
DATE: 05/09/2019 SUBJECTIVE: The patient's anxiety and agitation have decreased. She is disoriented and unable to answer the questions appropriately. The patient is forgetful. MENTAL STATUS EXAMINATION: The patient is alert and oriented times self. Mood is anxious. Affect is constricted, congruent with mood. Thought process, linear and goal oriented. Thought content, no suicidal or homicidal ideation. ASSESSMENT: 1. Dementia with behavioral disturbance. 2. Anxiety disorder. PLAN: 1. We will continue the Ativan. 2. Continue the mirtazapine. 3. Seroquel. 4. Temazepam. 5. The patient lacks capacity to make decisions. Christiano Klein M.D. DR: KEARA JOB#: [id number] CC:
[2019-05-10 04:00] VITALS: BP 134/74
[2019-05-10 05:13] VITALS: BP 134/74
--- NOTE | 2019-05-10 06:30 | NUR ---
NURSE NOTES: ENCOURAGED PATIENT TO VOID EVERY 2 HOURS BUT WHEN NURSE WOULD ASSESS PATIENT, PATIENT'S CHUCKS WERE ALREADY WET WITH URINE.
--- NOTE | 2019-05-10 07:10 | NUR ---
HAND-OFF: Report given to JAVY EVANS RN. PATIENT IN STABLE CONDITION.
--- NOTE | 2019-05-10 07:30 | NUR ---
NURSE NOTES: Received patient on bed, asleep. IV site intact and patent. Bed in low and locked position, call light in reach. Previous shift reported that patient voided. No signs of respiratory distress or pain. ROom board updated, will continue to monitor.
[2019-05-10 08:00] VITALS: BP 162/73
[2019-05-10] MEDS: Breo Ellipta 200/25mcg-14 dose INH SCH (08:38)
[2019-05-10] MEDS: Docusate 100mg cap ORAL SCH ×2 (08:49→13:00)
[2019-05-10] MEDS: Sertraline 50mg tab ORAL SCH (08:49)
[2019-05-10] MEDS: Losartan 50mg tab ORAL SCH (08:50)
[2019-05-10] MEDS: celeBREX 200mg Cap **SURGERY PATIENTS ONLY ORAL SCH (08:50)
[2019-05-10] MEDS: Enoxaparin 30mg Inj SUBQ SCH (08:51)
[2019-05-10] MEDS: Naproxen 500mg tab ORAL SCH (08:51)
[2019-05-10 12:00] VITALS: BP 140/62
--- NOTE | 2019-05-10 13:00 | NUR ---
NURSE NOTES: report give to Asim Garcia
[2019-05-10] MEDS ORDERED: Tubing IV Secondary IV ONE (13:42)
--- NOTE | 2019-05-10 13:43 | NUR ---
NURSE NOTES: PATIENT IS DISCHARGED TO [facility]. REPORT GIVEN OVER PHONE TO LICENSED NURSE KORIN. FAMILY AT BEDSIDE. PERSONAL BELONGINGS INVENTORIED BUT FAMILY HAD TAKEN THEM HOME PREVIOUSLY. IV REMOVED AND SITE COVERED. ID BAND REMOVED AND DISPOSED OF. PATIENT NEEDS MET AND PATIENT KEPT COMFORTABLE AT ALL TIMES. PATIENT TRANSPORTED VIA AMBULANCE.
--- NOTE | 2019-05-11 00:45 | Discharge Summary ---
DATE OF ADMISSION: 05/07/2019 DATE OF DISCHARGE: 05/10/2019 PERTINENT HISTORY: The patient was admitted with a ground level fall and right hip fracture. There is a history of rheumatoid arthritis, paranoid delusions, Alzheimer, hyperlipidemia, hypertension, and asthma. PERTINENT PHYSICAL FINDINGS: See the detailed H and P. LUNGS: Clear. HEART: Regular rhythm. ABDOMEN: Soft and nontender. EXTREMITIES: There is pain with range of motion of the right hip and rheumatoid changes in the hands. NEUROLOGIC: She is alert. No focal findings. There is a right jaw mass, well known me ____ 1 to 1.5 cm. COURSE IN THE HOSPITAL: The patient underwent surgery by Dr. Guillermo Oconnor with open reduction and internal fixation of the right hip for intertrochanteric fracture with intramedullary device. The patient tolerated the surgery well. Postoperative, she had her pain controlled. James was removed and we monitored her voiding. She had a mild rise in BUN and creatinine, which came down to baseline, likely from dehydration. The patient with the above treatment had an improvement in her overall condition. She required further physical therapy. After detailed discussion with the family, she was discharged to the halfway facility. FINAL DIAGNOSES: 1. Right hip intertrochanteric fracture. 2. Gait disorder. 3. Rheumatoid arthritis. 4. Asthma. 5. Hyperlipidemia. 6. Hypertension. 7. DVT prophylaxis. 8. 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 9. Alzheimer. 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 DISCHARGE DISPOSITION: ECF on a regular diet. MEDICATIONS: Per the discharge medication list. FOLLOWUP: Follow up by Dr. Tovar. Mike Tovar M.D. DR: SUNDAR JOB#: [id number] CC:
== END 2019-05-10 13:43 | DRG 481 ==
LOC: EDBD 12:47 → EMR 13:57 → 2E 14:02 → EDBEDREQ 16:05 → 4E 05-08 18:07
PROC: 0QS606Z Reposition Right Upper Femur with Intramedullary Internal Fixation Device, Open Approach (ICD-10-PCS; principal; 2019-05-07 18:30)
DX: S72.141A Displaced intertrochanteric fracture of right femur, initial encounter for closed fracture (principal); F02.81 Dementia in other diseases classified elsewhere, unspecified severity, with behavioral disturbance; W19.XXXA Unspecified fall, initial encounter; M06.9 Rheumatoid arthritis, unspecified; J45.909 Unspecified asthma, uncomplicated; C76.0 Malignant neoplasm of head, face and neck; R82.81 Pyuria; Z88.1 Allergy status to other antibiotic agents; Z88.2 Allergy status to sulfonamides; Z88.8 Allergy status to other drugs, medicaments and biological substances; I10 Essential (primary) hypertension; G30.9 Alzheimer's disease, unspecified; R26.9 Unspecified abnormalities of gait and mobility; E78.5 Hyperlipidemia, unspecified; Z91.81 History of falling; F41.9 Anxiety disorder, unspecified; F32.9 Major depressive disorder, single episode, unspecified; F28 Other psychotic disorder not due to a substance or known physiological condition; R33.9 Retention of urine, unspecified; D50.0 Iron deficiency anemia secondary to blood loss (chronic); Z66 Do not resuscitate
CPT/HCPCS: 36415; 74176; 76000; 80048; 80053; 81001; 83880; 84443; 84484; 85007; 85025; 85610; 85730; 86850; 86900; 86901; 87086; 93005; 94003; 94150; 94640; 94664; 96372; 96374; 96375; 99285; J2370; J2405